=== PATIENT | male | born 1945 | race Caucasian/White ===

== ENCOUNTER 2017-08-12 20:21 | Observation (INO) | payer MEDICARE, OTHER ==
[2017-08-12] MEDS ORDERED: Famotidine 20 MG/2 ML SDV IVPUSH ONE (20:31)
[2017-08-12] MEDS ORDERED: Ticagrelor 90 MG Tab PO ONE (20:31)
[2017-08-12] MEDS ORDERED: Metoprolol Tartrate 5 MG/5 ML SDV IVPUSH ONE (20:31)
[2017-08-12] MEDS ORDERED: Aspirin 81 MG Tab.Chew CHEW ONE (20:31)
--- NOTE | 2017-08-12 20:31 | EDM.PDOC ---
ED HPI GENERAL MEDICAL PROBLEM - General Chief Complaint: Chest Pain Stated Complaint: chest pain Time Seen by Provider: 08/12/17 20:30 Source of Information: Reports: Patient, Family (), Old Records ([facility] chart/EMR) History Limitations: Reports: No Limitations - History of Present Illness INITIAL COMMENTS - FREE TEXT/NARRATIVE: The patient was brought to the emergency room via private automobile by his for evaluation of initial 8/10 sharp left-sided chest pain with some secondary dizziness and symptoms starting at about 19:45 hours while the patient was sitting down watching his grandson in gymnastics. He did take 2 sublingual nitroglycerin tablets with improvement of his chest pain to 2/10 at time of arrival. He has been compliant with his medications, including aspirin and Plavix today. The patient denies any chest pressure, heart flutter, orthostasis, orthopnea, diaphoresis, paresthesias, recent decreased exercise tolerance, or any other anginal-type symptoms. No recent history of abdominal pain, heartburn, nausea, diarrhea, melena, gross hematochezia, or any food intolerance, including fatty foods, etc. with normal bowel movement earlier today. He also denies any gross hematuria, colic, or other UTI symptoms. The patient also denies any recent fever, cough, wheezing, dyspnea, etc.. No history of recent headaches, visual changes, diplopia, change in mental status, or other change in neurological status. Onset: Today, Sudden Onset Date: 08/12/17 Onset Time: 19:45 Duration: Constant, Improving Location: Reports: Chest. Denies: Head, Face, Neck, Abdomen, Back, Pelvis, Upper Extremity, Left, Upper Extremity, Right, Lower Extremity, Left, Lower Extremity, Right, Generalized, Radiates to Quality: Reports: Same as Previous Episode, Sharp Severity: Moderate Improves with: Reports: Medication (As above) Worsens with: Reports: None Context: Reports: Other (As above) Associated Symptoms: Reports: Chest Pain. Denies: Confusion, Cough, Diaphoresis , Fever/Chills, Headaches, Loss of Appetite, Malaise, Nausea/Vomiting, Rash, Seizure, Shortness of Breath, Syncope, Weakness Treatments SAFETY PERSON: Reports: Nitroglycerin Left Middle Chest Pain Score (Numeric/FACES): 2 - Related Data Allergies Allergy/AdvReac Type Severity Reaction Status Date / Time oxycodone Allergy Hyperactivi Verified 08/12/17 20:29 ty Home Meds: Home Meds Hydrochlorothiazide 50 mg PO QAM 12/20/13 [History] Levothyroxine Sodium [Synthroid] 150 mcg PO QAM 12/20/13 [History] Multivitamin [Tab A Ariana] 1 tab PO QAM 12/20/13 [History] Simvastatin [Zocor] 80 mg PO BEDTIME 12/20/13 [History] Triamcinolone Acetonide [Triamcinolone Acetonide 0.1% Crm] 1 applic TOP BID PRN 12/20/13 [History] Acetaminophen [Tylenol] 650 mg PO Q4H PRN #0 tablet 06/19/15 [Rx] Aspirin [Halfprin] 81 mg PO BRK 06/19/15 [History] Clopidogrel [Plavix] 75 mg PO QAM 06/19/15 [History] Ranitidine HCl [Zantac] 150 mg PO DAILY 06/19/15 [History] Nitroglycerin [Nitrostat] 0.4 mg SL ASDIRECTED PRN 08/12/17 [History] Tiotropium [Spiriva] 18 mcg INH DAILY 08/12/17 [History] Past Medical History HEENT History: Reports: Cataract, Hard of Hearing, Impaired Vision, Other (See Below). Denies: Allergic Rhinitis, Glaucoma, Macular Degeneration, Retinal Detachment Other HEENT History: Previous nasal fracture requiring surgery as below. Patient wears reading glasses. Bilateral hearing aid therapy. Cardiovascular History: Reports: Arrhythmia, CAD, High Cholesterol, Hypertension , Stents, Other (See Below). Denies: Afib, Blood Clots/VTE/DVT, Cardiomyopathy , Heart Failure, Heart Murmur, SC, Pacemaker, PTCA, PVD, Syncope Other Cardiovascular History: Complete right bundle branch block. History of PTCA/stents including repeat procedures as below. Borderline cardiomegaly and left atrial enlargement by echocardiogram in 2016 as below. Dyslipidemia. Respiratory History: Reports: COPD, Other (See Below) Other Respiratory History: Benign pulmonary granulomas. COPD by chest x-ray with current inhaler therapy Gastrointestinal History: Reports: Bowel Obstruction, Chronic Constipation, Colon Polyp, Diverticulosis, Gastritis, GERD, Hepatitis, Hiatal Hernia, Irritable Bowel Syndrome, PUD, Other (See Below). Denies: Celiac Disease, Cholelithiasis, Chronic Diarrhea, Fecal Incontinence, Jaundice, Pancreatitis Other Gastrointestinal History: Ileus secondary to gastric outlet obstruction on 07/05/12. GERD with Avery's esophagitis. Hepatitis of unknown type at about age 12. Genitourinary History: Reports: BPH, Other (See Below). Denies: Acute Renal Failure, Chronic Renal Insuffiency, Renal Calculus, STD, Urinary Incontinence, UTI, Recurrent Other Genitourinary History: Benign left renal cysts by CT scan Musculoskeletal History: Reports: Amputation, Arthritis, Back Pain, Chronic, Fracture, Neck Pain, Chronic, Osteoarthritis, Other (See Below). Denies: Gout, RA, SLE Other Musculoskeletal History: Bilateral chronic feet pain with secondary disability. 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 Nasal fracture in 1967. Distal phalangeal fracture of digit #3 of the left hand in about 2001. 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 Neurological History: Reports: Concussion, Headaches, Chronic, Head Trauma, Neuropathy, Peripheral, Other (See Below). Denies: Cerebral Aneurysms, CVA, Migraines, MS, Parkinson's, Seizure, TIA Other Neuro History: Mild head concussion secondary to minor fall on the ice in about 2013 Psychiatric History: Reports: Anxiety, Depression. Denies: Abuse, Victim of, ADD, ADHD, Addiction, Psych Hospitalization(s), PTSD, Suicide Attempt, Suicidal Ideation Endocrine/Metabolic History: Reports: Hypothyroidism, Other (See Below). Denies : Diabetes, Type I, Diabetes, Type II, Diabetes Mellitus, Type 3c, IDDM Other Endocrine/Metabolic History: Agent Morris exposure in the Hematologic History: Reports: None. Denies: Anemia, Blood Transfusion(s), Iron Deficiency Immunologic History: Reports: None. Denies: AIDS, HIV, SLE Oncologic (Cancer) History: Reports: None. Denies: Basal Cell Carcinoma, Colon , Hodgkin's Lymphoma, Leukemia, Lymphoma, Malignant Melanoma, Non-Hodgkin's Lymphoma, Prostate, Squamous Cell Carcinoma Dermatologic History: Reports: Other (See Below). Denies: Eczema, Psoriasis Other Dermatologic History: atopic dermatitis over the left skull region - Infectious Disease History Infectious Disease History: Reports: Chicken Pox, Shingles (Right CVA region about 2005), Other (See Below). Denies: C-Difficile, Measles, Meningitis, Mononucleosis, MRSA, Mumps, Rheumatic Fever, Rubella, Scarlet Fever, VRE Other Infectious Disease History: Hepatitis of unknown type at about age 12. - Past Surgical History Head Surgeries/Procedures: Reports: None HEENT Surgical History: Reports: Adenoidectomy, Cataract Surgery, Naso-Sinus Surgery, Oral Surgery, Tonsillectomy, Other (See Below). Denies: Eye Surgery, Laser Surgery, LASIK, Myringotomy w Tube(s) Other HEENT Surgeries/Procedures: Left sided cataract surgery in about 2013 with right-sided cataract extraction in 2012. Nasal fracture repair in 1967. Complete upper teeth extraction with additional multiple teeth extractions. [place] teeth extraction 4 in 1959. Tonsillectomy and adenoidectomy in 1967 at time of nasal fracture repair as above. Cardiovascular Surgical History: Reports: Coronary Artery Stent, Percutaneous Transluminal Angioplasty, Other (See Below). Denies: Carotid Stents, Coronary Artery Bypass, Varicose, Vascular Surgery Other Cardiovascular Surgeries/Procedures: Initial metal stent placement of the proximal circumflex and distal right coronary artery in February 2015 with subsequent PTCA and drug-eluting stent placed for revascularization of previous stent site at the proximal circumflex coronary artery on 11/01/15 Respiratory Surgical History: Reports: None. Denies: Thoracentesis GI Surgical History: Reports: Colonoscopy, EGD, Hernia, Abdominal, Hernia, Inguinal, Polypectomy, Other (See Below). Denies: Appendectomy, Cholecystectomy Other GI Surgeries/Procedures: EGD with biopsies on 07/26/17. Last colonoscopy at the [facility] in May 2012 with excision of benign colonic polyp at that time. Previous EGDs on 02/14/15 and in May 2012 in the [place] in [place]. Umbilical hernia repair in about 2007. Left inguinal hernia repair 2 in his 40s and then decompression of the inguinal nerves and adhesion lysis of the left inguinal region in June 2012. Male Surgical History: Reports: Circumcision, TURP-Transurethral Resection of Prostate, Other (See Below). Denies: Vasectomy Other Male Surgeries/Procedures: Circumcision as an . TURP 2 in his early 60s Endocrine Surgical History: Reports: None. Denies: Thyroid Biopsy Neurological Surgical History: Reports: C-Spine, Sacral Spine, Spinal Fusion, Thoracic Spine, Other (See Below). Denies: Discectomy, Laminectomy, Lumbar Spine, Vertebroplasty Other Neurological Surgeries/Procedures: Spinal fusion of the cervical spine at about age 46 with subsequent spinal fusion of the upper thoracic region and his 50s?. Additional probable laminectomy and his sacral region in his late 50s. Musculoskeletal Surgical History: Reports: Carpal Tunnel, Other (See Below). Denies: Arthroscopic Procedure, Ganglion Cyst, Joint Replacement, Knee Replacement, ORIF, Shoulder Surgery Other Musculoskeletal Surgeries/Procedures:: Bilateral carpal tunnel release in the Oncologic Surgical History: Reports: None Dermatological Surgical History: Reports: None - Past Imaging History Past Imaging History: Reports: Angiography (Last heart catheterization on ), Cardiac Echo (02/11/16 with ejection fraction of 6065 percent and otherwise findings as above), CAT Scan (CT of the head on 04/09/14. CT of the abdomen and pelvis on 06/25/12.), Stress Testing (Low level cardiac stress test on 11/28/15 with previous positive Cardiolite stress test on 02/28/15 indicating inferolateral cardiac ischemia with ejection fraction of 76%. Low level cardiac stress test on 03/13/15.) Social & Family History - Family History HEENT: Reports: None Cardiac: Reports: Blood Clots/VTE/DVT, Heart Failure, Hypertension, Pacemaker, Other (See Below). Denies: Bypass, CAD, High Cholesterol, SC, Syncope Other Cardiac Family History: Father with history of recurrent DVTs and fatal CHF in his 80s. Hypertension in brother and father. Pacemaker in mother. Respiratory: Reports: None, Sleep Apnea, Other (See Below). Denies: Asthma, COPD, PE, Pneumothorax Other Respiratory Family Hisory: Sleep apnea in 2 brothers GI: Reports: Cholelithiasis, Other (See Below). Denies: Celiac Disease, Colon Polyps, GERD, GI bleed, Inflammatory Bowel Disease, Irritable Bowel Syndrome Other GI Family History: Mother with cholelithiasis : Reports: None. Denies: Renal Calculus, Renal Disease/Insufficiency OBGYN: Reports: None. Denies: Endometriosis, Recurrent Spontaneous Musculoskeletal: Reports: None. Denies: Gout, RA, SLE Neurological: Reports: Alzheimers Disease, CVA, Dementia, Migraines, TIA, Other (See Below). Denies: Cerebral Aneurysms, MS, Parkinson's, Seizure Other Neurological Family History: Mother with fatal organic brain syndrome at age 78. Brother with organic brain syndrome at age 77 with possible alcoholic encephalopathy. Mother with history of TIAs recurrent nature. Father with recurrent CVAs initially in his 60s. Sister with migraine headaches Psychiatric: Reports: Anxiety, Depression, Other (See Below). Denies: Abuse, Victim of, ADD, ADHD, Psych Hospitalization(s), PTSD, Suicide Attempt Other Psychiatric Family History: Anxiety depression disorder in 6 brothers and 2 sisters with all having alcohol abuse Endocrine/Metabolic: Reports: Diabetes, type II, Other (See Below). Denies: Diabetes, Type I, Diabetes Mellitus, Type 3c, Hypothyroidism, IDDM Other Endocrine/Metabolic Family History: Diabetes mellitus in paternal grandfather Hematologic: Reports: None. Denies: Anemia, SLE, Transfusion Reaction Immunologic: Reports: None. Denies: AIDS, HIV, SLE Dermatologic: Reports: None. Denies: Eczema, Psoriasis Oncologic: Reports: Liver, Prostate, Other (See Below). Denies: Colon, Hodgkin' s Lymphoma, Leukemia, Lymphoma, Non-Hodgkin's Lymphoma, Skin Other Oncologic Family History: Sister with fatal unknown type of cancer in her 50s; brother with fatal throat cancer in his 70s with history of alcohol abuse; sister with unknown type of fatal cancer at age 75. Another brother with fatal liver cancer likely secondary to alcohol abuse in his 70s. Brother with prostate cancer in his late 70s. - Tobacco Use Smoking Status *Q: Former Smoker Tobacco Use Within Last Twelve Months: No Years of Tobacco use: 52 Packs/Tins Daily: 4 Used Tobacco, but Quit: Yes Month/Year Tobacco Last Used: 2004 Smoking Cessation Information Provided To Patient: No Second Hand Smoke Exposure: No Second Hand Smoke Education Provided: No - Caffeine Use Caffeine Use: Reports: Coffee (6 cups of coffee per day), Soda (Occasional), Tea (Occasional 2 times per month). Denies: Energy Drinks - Alcohol Use Alcohol Use History: Yes Days Per Week of Alcohol Use: 2 (No previous DWIs, problems with alcohol abuse, etc.) Number of Drinks Per Day: 2 (Usually beer) Total Drinks Per Week: 4 Alcohol Use in Last Twelve Months: Yes Alcohol Use Frequency: Socially - Recreational Drug Use Recreational Drug Use: No Drug Use in Last 12 Months: No Recreational Drug Type: Denies: Amphetamines (Speed), Cocaine, Heroin, Inhalants (Glues, Solvents, Aerosols), LSD (Acid), Marijuana/Hashish, Methamphetamine, Morphine, Oxycodone Recreational Drug Last Use: 5 cups of coffee per day, occasional soda - Living Situation & Occupation Living situation: Reports: (1965, 3 children), with Family () Occupation: Disabled (Disability at age 56 through the [facility] secondary to his chronic bilateral feet pain with patient previously working at [employer] in [employer]) ED ROS GENERAL - Review of Systems Review Of Systems: ROS reveals no pertinent complaints other than HPI. ED EXAM, GENERAL - Physical Exam Exam: See Below Exam Limited By: No Limitations General Appearance: Alert, WD/WN, No Apparent Distress Eye Exam: Bilateral Eye: EOMI, Normal Inspection (No nystagmus), PERRL Ears: Normal External Exam, Hearing Grossly Normal (Mild to moderate bilateral presbycusis with bilateral hearing aid therapy) Nose: Normal Inspection, Normal Mucosa, No Blood Throat/Mouth: Normal Lips, Normal Gums, Normal Oropharynx, Normal Voice, No Airway Compromise. No: Normal Teeth (Complete upper dentures), Dysphagia, Perioral Cyanosis Head: Atraumatic, Normocephalic. No: Facial Swelling, Facial Tenderness, Sinus Tenderness Neck: Supple, Non-Tender, Full Range of Motion, Carotid Bruit (Mild bilateral carotid bruits). No: Lymphadenopathy (L), Lymphadenopathy (R), Thyromegaly Respiratory/Chest: No Respiratory Distress, Normal Breath Sounds, No Accessory Muscle Use, Chest Non-Tender, Rales (Mild bilateral basilar rales). No: Rhonchi , Wheezing, Pleural Rub, Retractions Cardiovascular: Normal Peripheral Pulses, Regular Rate, Rhythm, No Edema, No Gallop, No JVD, No Murmur, No Rub. No: Gallop/S3, Gallop/S4, Friction Rub Peripheral Pulses: 2+: Radial (L), Radial (R), Dorsalis Pedis (L), Dorsalis Pedis (R) GI/Abdominal: Normal Bowel Sounds, Soft, Non-Tender, No Organomegaly, No Distention, No Abnormal Bruit, No Mass, Pelvis Stable, Other (Obese). No: Guarding (Male) Exam: Deferred Rectal (Males) Exam: Deferred Back Exam: Normal Inspection, Full Range of Motion. No: CVA Tenderness (L), CVA Tenderness (R), Muscle Spasm Extremities: Normal Range of Motion, Non-Tender, No Pedal Edema, Normal Capillary Refill, Other (Status post amputation of digit #3 of the left foot). No: Gomez's Sign Neurological: Alert, Oriented, CN II-XII Intact, Normal Cognition, Normal Gait, Normal Reflexes (Negative Babinski's), No Motor/Sensory Deficits Psychiatric: Normal Affect, Normal Mood Skin Exam: Warm, Dry, Intact, Normal Color, No Rash. No: Diaphoretic, Lymphangitis, Tattoo(s), Wound/Incision Lymphatic: No Adenopathy EKG INTERPRETATION EKG Date: 08/12/17 Time: 20:39 Rhythm: NSR Rate (Beats/Min): 74 [place]: Normal (Neutral cardiac axis) P-Wave: Enlarged (Moderate diffuse biphasic P waves) QRS: RBBB (QRS interval of 0.13 seconds representing a complete right bundle branch block with T-wave inversions in leads V1 and V3 with new T-wave inversion in lead V3 since low level cardiac stress test on 11/28/15) ST-T: Other (As above) QT: Normal FL/PQ Interval: 0.17 seconds Comparison: Change From Previous EKG (As above) EKG Interpretation Comments: 1. Mild anterior wall cardiac ischemia 2. Complete right bundle branch block 3. Left atrial enlargement Course - Vital Signs Last Recorded V/S: Last Vital Signs Temp 36.6 C 08/12/17 20:25 Pulse 73 08/12/17 21:13 Resp 19 08/12/17 21:13 BP 120/79 08/12/17 21:13 Pulse Ox 98 08/12/17 21:13 Vital Signs - 24 hr 08/12/17 08/12/17 08/12/17 20:25 20:35 20:46 Temperature [ 36.6 C Oral] Pulse, 74 Peripheral Pulse, 76 75 Peripheral [ Brachial] Respiratory 19 17 Rate Blood Pressure 130/74 Blood Pressure 146/73 H 130/74 [Upper Arm] O2 Sat by Pulse 96 97 Oximetry 08/12/17 08/12/17 08/12/17 20:50 21:13 21:36 Temperature [ Oral] Pulse, Peripheral Pulse, 73 73 73 Peripheral [ Brachial] Respiratory 19 19 19 Rate Blood Pressure Blood Pressure 134/76 120/79 149/93 H [Upper Arm] O2 Sat by Pulse 97 98 99 Oximetry - Orders/Labs/Meds Orders: Active Orders 24 hr Category Date Time Status Cardiac Monitoring [RC] . DIRECTED Care 08/12/17 20:31 Active EKG Documentation Completion [RC] ASDIRECTED Care 08/12/17 20:31 Active Oxygen Therapy, ED [RC] CONTINUOUS Care 08/12/17 20:31 Active Peripheral IV Care [RC] . DIRECTED Care 08/12/17 20:31 Active Pulse Oximetry [RC] CONTINUOUS Care 08/12/17 20:31 Active Up With Assistance [RC] PFP Care 08/12/17 20:31 Active Vital Signs [RC] PFP Care 08/12/17 20:31 Active Nothing per Oral Now Diet [DIET] Diet 08/12/17 Breakfast Active Chest 1V Frontal [CR] Stat Exams 08/12/17 20:31 Taken Sodium Chloride 0.9% [Saline Flush] Med 08/12/17 20:31 Active 10 ml FLUSH ASDIRECTED PRN Obtain Past Medical Record [OM.PC] Urgent Oth 08/12/17 20:31 Active Peripheral IV Insertion Adult [OM.PC] Stat Oth 08/12/17 20:31 Ordered Resuscitation Status Stat Resus Stat 08/12/17 20:31 Ordered Medication Orders Sodium Chloride (Saline Flush) 10 ml FLUSH ASDIRECTED PRN PRN Reason: Keep Vein Open Last Admin: 08/12/17 20:53 Dose: 10 ml Labs: Laboratory Tests 08/12/17 08/12/17 08/12/17 Range/Units 20:40 20:40 20:40 WBC 8.1 (4.0-10.2) K/uL RBC 4.73 (4.33-5.41) M/uL Hgb 14.6 (13.1-16.8) g/dL Hct 42.5 (39.0-49.0) % MCV 89.9 (84.0-98.0) fL MCH 30.9 (28.2-33.3) pg MCHC 34.4 (31.7-36.0) g/dL RDW 13.3 (11.2-14.1) % Plt Count 230 (150-350) K/uL Neut % (Auto) 64.0 (45.0-80.0) % Lymph % (Auto) 23.7 (10.0-50.0) % Cloud % (Auto) 7.7 (2.0-14.0) % Eos % (Auto) 4.0 (0.0-5.0) % Baso % (Auto) 0.6 (0.0-2.0) % Neut # (Auto) 5.18 (1.40-7.00) K/uL Lymph # (Auto) 1.92 (0.50-3.50) K/uL Cloud # (Auto) 0.62 (0.00-1.00) K/uL Eos # (Auto) 0.32 (0.00-0.50) K/uL Baso # (Auto) 0.05 (0.00-0.20) K/uL PT 10.5 (9.8-11.7) SEC INR 1.0 APTT 26.0 (22.1-29.8) SEC D-Dimer, Quantitative 205 (0-400) ng/mL Sodium (136-145) mmol/L Potassium (3.5-5.1) mmol/L Chloride (98-107) mmol/L Carbon Dioxide (21.0-32.0) mmol/L BUN (7-18) mg/dL Creatinine (0.51-1.17) mg/dL Est Cr Clr Drug Dosing mL/min Estimated GFR (MDRD) mL/min Glucose (74-106) mg/dL Lactic Acid (0.4-2.0) mmol/L Uric Acid (2.6-7.2) mg/dL Calcium (8.5-10.1) mg/dL Magnesium (1.8-2.4) mg/dL Total Bilirubin (0.2-1.0) mg/dL AST (15-37) U/L ALT (12-78) U/L Alkaline Phosphatase (46-116) IU/L Creatine Kinase (26-308) U/L Creatine Kinase Index (0.0-2.5) % CK-MB (CK-2) (0.00-3.60) ng/mL Troponin I (0.000-0.056) ng/mL NT-Pro-B Natriuret Pep (0-125) pg/mL Total Protein (6.4-8.2) g/dL Albumin (3.4-5.0) g/dL TSH, Ultra Sensitive (0.358-3.740) mIU/mL 08/12/17 08/12/17 Range/Units 20:40 20:40 WBC (4.0-10.2) K/uL RBC (4.33-5.41) M/uL Hgb (13.1-16.8) g/dL Hct (39.0-49.0) % MCV (84.0-98.0) fL MCH (28.2-33.3) pg MCHC (31.7-36.0) g/dL RDW (11.2-14.1) % Plt Count (150-350) K/uL Neut % (Auto) (45.0-80.0) % Lymph % (Auto) (10.0-50.0) % Cloud % (Auto) (2.0-14.0) % Eos % (Auto) (0.0-5.0) % Baso % (Auto) (0.0-2.0) % Neut # (Auto) (1.40-7.00) K/uL Lymph # (Auto) (0.50-3.50) K/uL Cloud # (Auto) (0.00-1.00) K/uL Eos # (Auto) (0.00-0.50) K/uL Baso # (Auto) (0.00-0.20) K/uL PT (9.8-11.7) SEC INR APTT (22.1-29.8) SEC D-Dimer, Quantitative (0-400) ng/mL Sodium 140 (136-145) mmol/L Potassium 4.1 (3.5-5.1) mmol/L Chloride 103 (98-107) mmol/L Carbon Dioxide 29.0 (21.0-32.0) mmol/L BUN 17 (7-18) mg/dL Creatinine 1.03 (0.51-1.17) mg/dL Est Cr Clr Drug Dosing 59.36 mL/min Estimated GFR (MDRD) > 60 mL/min Glucose 121 H (74-106) mg/dL Lactic Acid 0.9 (0.4-2.0) mmol/L Uric Acid 6.1 (2.6-7.2) mg/dL Calcium 9.3 (8.5-10.1) mg/dL Magnesium 2.1 (1.8-2.4) mg/dL Total Bilirubin 0.5 (0.2-1.0) mg/dL AST 24 (15-37) U/L ALT 30 (12-78) U/L Alkaline Phosphatase 128 H (46-116) IU/L Creatine Kinase 96 (26-308) U/L Creatine Kinase Index 1.6 (0.0-2.5) % CK-MB (CK-2) 1.50 (0.00-3.60) ng/mL Troponin I 0.000 (0.000-0.056) ng/mL NT-Pro-B Natriuret Pep 102 (0-125) pg/mL Total Protein 7.9 (6.4-8.2) g/dL Albumin 3.9 (3.4-5.0) g/dL TSH, Ultra Sensitive 5.733 H (0.358-3.740) mIU/mL Meds: Medications Generic Name Dose Route Start Last Admin Trade Name Freq PRN Reason Stop Dose Admin Sodium Chloride 10 ml 08/12/17 20:31 08/12/17 20:53 Saline Flush FLUSH 10 ml ASDIRECTED PRN Administration Keep Vein Open Discontinued Medications Generic Name Dose Route Start Last Admin Trade Name Freq PRN Reason Stop Dose Admin Aspirin 324 mg 08/12/17 20:31 08/12/17 20:46 Aspirin CHEW 08/12/17 20:32 324 mg ONETIME ONE Administration Famotidine 40 mg 08/12/17 20:31 08/12/17 20:53 Pepcid IVPUSH 08/12/17 20:32 40 mg ONETIME ONE Administration Metoprolol Tartrate 2.5 mg 08/12/17 20:31 08/12/17 20:46 Lopressor IVPUSH 08/12/17 20:32 2.5 mg ONETIME ONE Administration Ticagrelor 180 mg 08/12/17 20:31 08/12/17 20:46 Brilinta PO 08/12/17 20:32 180 mg ONETIME ONE Administration - Radiology Interpretation Free Text/Narrative:: deck scaler shows normal sinus rhythm with heart rate in the 70s to 80s with no ectopy or arrhythmia Chest x-ray, portable, shows evidence of moderate to severe COPD changes with probable pulmonary hypertension and/or borderline centralized CHF. Note borderline cardiomegaly and mild prominence of the proximal aortic arch with no pulmonary infiltrates, pneumothorax, etc. Departure - Departure Time of Disposition: 21:55 Disposition: Refer to Observation Condition: Good Clinical Impression: COPD, Mild chronic obstructive pulmonary disease, HTN, Benign hypertension, Complete right bundle branch block, Dyslipidemia, Peptic reflux disease, Hyperglycemia Coronary artery disease Qualifiers: Coronary Disease-Associated Artery/Lesion type: [place] artery [place] vs. transplanted heart: [place] heart Associated angina: with stable angina Qualified Code(s): I25.119 - Atherosclerotic heart disease of [place] coronary artery with unspecified angina pectoris Hypothyroidism Qualifiers: Hypothyroidism type: acquired Qualified Code(s): E03.9 - Hypothyroidism, unspecified Osteoarthritis Qualifiers: Osteoarthritis location: multiple joints Osteoarthritis type: primary Qualified Code(s): M15.0 - Primary generalized (osteo)arthritis Referrals: PCP,Unknown [Primary Care Provider] - Forms: ED Department Discharge Care Plan Goals: See plan - Problem List & Annotations (1) Chest pain SNOMED Code(s): 62523644 Code(s): R07.9 - CHEST PAIN, UNSPECIFIED Status: Acute Priority: High Current Visit: Yes Onset Date: 08/12/17 Annotation/Comment:: Chest pain protocol initiated immediately upon arrival of the patient to the emergency room. Note complete resolution of symptoms at time of admission. Patient does have a significant heart history, including restenosis of previous stent as above. Low threshold for cardiology consultation. Initiate standard rule out SC orders. Recommend repeat Cardiolite stress test shortly after hospital discharge. Low dose Lovenox subcutaneous therapy as DVT prophylaxis. Note some possible anterior wall cardiac ischemia by today's EKG, however difficult to assess secondary to his complete right bundle branch block (2) Coronary artery disease SNOMED Code(s): 75028005 Code(s): I25.10 - ATHSCL HEART DISEASE OF [place] CORONARY ARTERY W/O ANG PCTRS Status: Chronic Priority: Medium Current Visit: Yes Annotation/ Comment:: As above. Qualifiers: Coronary Disease-Associated Artery/Lesion type: [place] artery [place] vs. transplanted heart: [place] heart Associated angina: with stable angina Qualified Code(s): I25.119 - Atherosclerotic heart disease of [place] coronary artery with unspecified angina pectoris (3) COPD (chronic obstructive pulmonary disease) SNOMED Code(s): 13397725 Code(s): J44.9 - CHRONIC OBSTRUCTIVE PULMONARY DISEASE, UNSPECIFIED Status : Chronic Priority: Medium Current Visit: Yes Annotation/Comment:: No recent fever or bronchitic type symptoms. Qualifiers: COPD type: emphysema (4) HTN, Benign hypertension SNOMED Code(s): 66825205 Code(s): I10 - ESSENTIAL (PRIMARY) HYPERTENSION Status: Chronic Priority : Medium Current Visit: Yes Annotation/Comment:: His blood pressures were under good control in the emergency room. (5) Peptic reflux disease SNOMED Code(s): 871501786 Code(s): K21.9 - GASTRO-ESOPHAGEAL REFLUX DISEASE WITHOUT ESOPHAGITIS Status: Chronic Priority: Medium Current Visit: Yes Annotation/Comment:: Note history of Avery's esophagitis with recent EGD as above. No current abdominal pain or evidence of recent GI bleed, etc. Symptoms under relatively good control with current medications by his history. High-dose IV Pepcid was given as GI prophylaxis in the emergency room (6) Hypothyroidism SNOMED Code(s): 38510212 Code(s): E03.9 - HYPOTHYROIDISM, UNSPECIFIED Status: Chronic Priority: Medium Current Visit: Yes Annotation/Comment:: TSH somewhat elevated today. Increase his Synthroid supplementation. Recommend repeat TSH in 4 weeks. Qualifiers: Hypothyroidism type: acquired Qualified Code(s): E03.9 - Hypothyroidism, unspecified (7) Complete right bundle branch block SNOMED Code(s): 660419648 Code(s): I45.10 - UNSPECIFIED RIGHT BUNDLE-BRANCH BLOCK Status: Chronic Priority: Medium Current Visit: Yes Annotation/Comment:: Stable (8) Dyslipidemia SNOMED Code(s): 834645266 Code(s): E78.5 - HYPERLIPIDEMIA, UNSPECIFIED Status: Chronic Priority: Medium Current Visit: Yes Annotation/Comment:: Currently under therapy. Lipid panel in the a.m. (9) Hyperglycemia SNOMED Code(s): 63828381 Code(s): R73.9 - HYPERGLYCEMIA, UNSPECIFIED Status: Acute Priority: Medium Current Visit: Yes Onset Date: 08/12/17 Annotation/Comment:: Glycosylated hemoglobin in the a.m. with no previous history of diabetes. Glucose today is nonfasting (10) Osteoarthritis SNOMED Code(s): 413903911 Code(s): M19.90 - UNSPECIFIED OSTEOARTHRITIS, UNSPECIFIED SITE Status: Chronic Priority: Medium Current Visit: Yes Annotation/Comment:: Stable by patient history Qualifiers: Osteoarthritis location: multiple joints Osteoarthritis type: primary Qualified Code(s): M15.0 - Primary generalized (osteo)arthritis - Problem List Review Problem List Initiated/Reviewed/Updated: Yes - My Orders Last 24 Hours: My Active Orders 08/12/17 20:31 Cardiac Monitoring [RC] . DIRECTED EKG Documentation Completion [RC] ASDIRECTED Oxygen Therapy, ED [RC] CONTINUOUS Peripheral IV Care [RC] . DIRECTED Pulse Oximetry [RC] CONTINUOUS Up With Assistance [RC] PFP Vital Signs [RC] PFP Chest 1V Frontal [CR] Stat Sodium Chloride 0.9% [Saline Flush] 10 ml FLUSH ASDIRECTED PRN Obtain Past Medical Record [OM.PC] Urgent Peripheral IV Insertion Adult [OM.PC] Stat Resuscitation Status Stat 08/12/17 Breakfast Nothing per Oral Now Diet [DIET] - Assessment/Plan Admission H&P: Please use this note as an admission H&P Last 24 Hours: My Active Orders 08/12/17 20:31 Cardiac Monitoring [RC] . DIRECTED EKG Documentation Completion [RC] ASDIRECTED Oxygen Therapy, ED [RC] CONTINUOUS Peripheral IV Care [RC] . DIRECTED Pulse Oximetry [RC] CONTINUOUS Up With Assistance [RC] PFP Vital Signs [RC] PFP Chest 1V Frontal [CR] Stat Sodium Chloride 0.9% [Saline Flush] 10 ml FLUSH ASDIRECTED PRN Obtain Past Medical Record [OM.PC] Urgent Peripheral IV Insertion Adult [OM.PC] Stat Resuscitation Status Stat 08/12/17 Breakfast Nothing per Oral Now Diet [DIET] Assessment:: As above. Plan: As above. Extensive precautions were given to the patient and his , who are in agreement with the treatment plan. The patient's condition is stable enough for observation status and general supervision. Karel King M.D., at the [facility] assumes care in the a.m.
[2017-08-12] MEDS: Sodium Chloride 0.9% 10 ML Syringe FLUSH PRN (20:53)
[2017-08-12 21:27] LABS: CHLORIDE,CL 103 mmol/L (98-107); SODIUM,NA 140 mmol/L (136-145)
[2017-08-12] MEDS ORDERED: Simvastatin 20 MG Tab PO SCH (22:07)
[2017-08-12] MEDS ORDERED: Acetaminophen 325 MG Tab PO PRN ×2 (22:07→22:09)
[2017-08-12] MEDS ORDERED: Triamcinolone Acetonide 0.1% Crm 15 GM Tube TOP PRN (22:07)
[2017-08-12] MEDS ORDERED: Nitroglycerin 0.4 MG Tab.SL SL PRN (22:07)
[2017-08-12] MEDS ORDERED: Sodium Chloride 0.9% 10 ML Syringe FLUSH PRN (22:09)
[2017-08-12] MEDS ORDERED: Temazepam 15 MG Cap PO PRN (22:09)
[2017-08-12] MEDS ORDERED: Albuterol/Ipratropium 3.0-0.5 MG/3 ML Neb Soln NEB PRN (22:13)
[2017-08-12] MEDS ORDERED: Albuterol 0.083% 2.5 MG/3 ML Neb Soln INH PRN (22:13)
[2017-08-12] MEDS ORDERED: Enoxaparin 40 MG/0.4 ML Syringe SUBCUT SCH (22:30)
[2017-08-13 07:04] LABS: CHLORIDE,CL 105 mmol/L (98-107); SODIUM,NA 140 mmol/L (136-145)
[2017-08-13] MEDS: Sodium Chloride 0.9% 10 ML Syringe FLUSH PRN (07:17)
[2017-08-13] MEDS ORDERED: Tiotropium Inhaler 18 MCG Inhalation Powder Cap Kit of 5 INH SCH (08:00)
[2017-08-13] MEDS ORDERED: Hydrochlorothiazide 25 MG Tab PO SCH (08:00)
[2017-08-13 12:19] VITALS: BP 148/96
--- NOTE | 2017-08-13 12:51 | PCM.DCSUM1 ---
Discharge Summary - Discharge Data Discharge Date: 08/13/17 Discharge Disposition: Home, Self-Care 01 Condition: Stable - Discharge Diagnosis/Problem(s) (1) Chest pain SNOMED Code(s): 01484254 ICD Code: R07.9 - CHEST PAIN, UNSPECIFIED Status: Acute Priority: High Current Visit: Yes Onset Date: 08/12/17 Problem Details: Patient will be discharged home continue his medications schedule for Cardiolite stress test as soon as possible - Patient Instructions Diet: Heart Healthy Diet Activity: Rest and Relax Today Driving: May Drive Today Showering/Bathing: May Shower - Discharge Plan Home Medications: Home Meds Hydrochlorothiazide 50 mg PO QAM 12/20/13 [History] Levothyroxine Sodium [Synthroid] 150 mcg PO QAM 12/20/13 [History] Multivitamin [Tab A Ariana] 1 tab PO QAM 12/20/13 [History] Simvastatin [Zocor] 80 mg PO BEDTIME 12/20/13 [History] Triamcinolone Acetonide [Triamcinolone Acetonide 0.1% Crm] 1 applic TOP BID PRN 12/20/13 [History] Acetaminophen [Tylenol] 650 mg PO Q4H PRN #0 tablet 06/19/15 [Rx] Aspirin [Halfprin] 81 mg PO BRK 06/19/15 [History] Clopidogrel [Plavix] 75 mg PO QAM 06/19/15 [History] Ranitidine HCl [Zantac] 150 mg PO DAILY 06/19/15 [History] Nitroglycerin [Nitrostat] 0.4 mg SL ASDIRECTED PRN 08/12/17 [History] Tiotropium [Spiriva] 18 mcg INH DAILY 08/12/17 [History] Patient Handouts: Enoxaparin injection, Nonspecific Chest Pain, [id number], Venous Thromboembolism Prevention Forms: ED Department Discharge Referrals: PCP,Unknown [Primary Care Provider] - - Discharge Summary/Plan Comment DC Time >30 min.: No Discharge Summary/Plan Comment: Patient is a 72-year-old who is well-known to me admitted with chest pain patient has not had a episode of chest pain while in the hospital will discharge home on current medications plus scheduled for cardiac stress test as soon as possible - General Info Date of Service: 08/13/17 Functional Status: Reports: Tolerating Diet - Review of Systems General: Reports: No Symptoms HEENT: Reports: No Symptoms Pulmonary: Reports: No Symptoms Cardiovascular: Reports: No Symptoms Gastrointestinal: Reports: No Symptoms Genitourinary: Reports: No Symptoms Musculoskeletal: Reports: No Symptoms Skin: Reports: No Symptoms Neurological: Reports: No Symptoms Psychiatric: Reports: No Symptoms - Patient Data Vitals - Most Recent: Last Vital Signs Temp 98.6 F 08/13/17 10:00 Pulse 73 08/13/17 10:00 Resp 20 08/13/17 12:00 BP 148/96 H 08/13/17 12:00 Pulse Ox 98 08/13/17 12:00 Weight - Most Recent: 191 lb 9.6 oz I&O - Last 24 hours: Intake & Output 08/12/17 08/13/17 08/13/17 22:59 06:59 14:59 Intake Total 50 Output Total 200 Balance -150 Lab Results - Last 24 hrs: Laboratory Results - last 24 hr 08/12/17 08/12/17 08/12/17 Range/Units 20:40 20:40 20:40 WBC 8.1 (4.0-10.2) K/uL RBC 4.73 (4.33-5.41) M/uL Hgb 14.6 (13.1-16.8) g/dL Hct 42.5 (39.0-49.0) % MCV 89.9 (84.0-98.0) fL MCH 30.9 (28.2-33.3) pg MCHC 34.4 (31.7-36.0) g/dL RDW 13.3 (11.2-14.1) % Plt Count 230 (150-350) K/uL Neut % (Auto) 64.0 (45.0-80.0) % Lymph % (Auto) 23.7 (10.0-50.0) % Barber % (Auto) 7.7 (2.0-14.0) % Eos % (Auto) 4.0 (0.0-5.0) % Baso % (Auto) 0.6 (0.0-2.0) % Neut # (Auto) 5.18 (1.40-7.00) K/uL Lymph # (Auto) 1.92 (0.50-3.50) K/uL [place] # (Auto) 0.62 (0.00-1.00) K/uL Eos # (Auto) 0.32 (0.00-0.50) K/uL Baso # (Auto) 0.05 (0.00-0.20) K/uL PT 10.5 (9.8-11.7) SEC INR 1.0 APTT 26.0 (22.1-29.8) SEC D-Dimer, Quantitative 205 (0-400) ng/mL Sodium (136-145) mmol/L Potassium (3.5-5.1) mmol/L Chloride (98-107) mmol/L Carbon Dioxide (21.0-32.0) mmol/L BUN (7-18) mg/dL Creatinine (0.51-1.17) mg/dL Est Cr Clr Drug Dosing mL/min Estimated GFR (MDRD) mL/min Glucose (74-106) mg/dL Hemoglobin A1c (4.3-5.7) % Lactic Acid (0.4-2.0) mmol/L Uric Acid (2.6-7.2) mg/dL Calcium (8.5-10.1) mg/dL Magnesium (1.8-2.4) mg/dL Total Bilirubin (0.2-1.0) mg/dL AST (15-37) U/L ALT (12-78) U/L Alkaline Phosphatase (46-116) IU/L Creatine Kinase (26-308) U/L Creatine Kinase Index (0.0-2.5) % CK-MB (CK-2) (0.00-3.60) ng/mL Troponin I (0.000-0.056) ng/mL NT-Pro-B Natriuret Pep (0-125) pg/mL Total Protein (6.4-8.2) g/dL Albumin (3.4-5.0) g/dL Triglycerides (30-150) mg/dL Cholesterol (100-200) mg/dL LDL Cholesterol, Calc (0-100) mg/dL HDL Cholesterol (40-60) mg/dL TSH, Ultra Sensitive (0.358-3.740) mIU/mL 08/12/17 08/12/17 08/13/17 Range/Units 20:40 20:40 06:10 WBC 6.2 (4.0-10.2) K/uL RBC 4.55 (4.33-5.41) M/uL Hgb 14.0 (13.1-16.8) g/dL Hct 41.3 (39.0-49.0) % MCV 90.8 (84.0-98.0) fL MCH 30.8 (28.2-33.3) pg MCHC 33.9 (31.7-36.0) g/dL RDW 13.3 (11.2-14.1) % Plt Count 207 (150-350) K/uL Neut % (Auto) 61.2 (45.0-80.0) % Lymph % (Auto) 23.4 (10.0-50.0) % [place] % (Auto) 9.5 (2.0-14.0) % Eos % (Auto) 5.3 H (0.0-5.0) % Baso % (Auto) 0.6 (0.0-2.0) % Neut # (Auto) 3.82 (1.40-7.00) K/uL Lymph # (Auto) 1.46 (0.50-3.50) K/uL [place] # (Auto) 0.59 (0.00-1.00) K/uL Eos # (Auto) 0.33 (0.00-0.50) K/uL Baso # (Auto) 0.04 (0.00-0.20) K/uL PT (9.8-11.7) SEC INR APTT (22.1-29.8) SEC D-Dimer, Quantitative (0-400) ng/mL Sodium 140 (136-145) mmol/L Potassium 4.1 (3.5-5.1) mmol/L Chloride 103 (98-107) mmol/L Carbon Dioxide 29.0 (21.0-32.0) mmol/L BUN 17 (7-18) mg/dL Creatinine 1.03 (0.51-1.17) mg/dL Est Cr Clr Drug Dosing 59.36 mL/min Estimated GFR (MDRD) > 60 mL/min Glucose 121 H (74-106) mg/dL Hemoglobin A1c (4.3-5.7) % Lactic Acid 0.9 (0.4-2.0) mmol/L Uric Acid 6.1 (2.6-7.2) mg/dL Calcium 9.3 (8.5-10.1) mg/dL Magnesium 2.1 (1.8-2.4) mg/dL Total Bilirubin 0.5 (0.2-1.0) mg/dL AST 24 (15-37) U/L ALT 30 (12-78) U/L Alkaline Phosphatase 128 H (46-116) IU/L Creatine Kinase 96 (26-308) U/L Creatine Kinase Index 1.6 (0.0-2.5) % CK-MB (CK-2) 1.50 (0.00-3.60) ng/mL Troponin I 0.000 (0.000-0.056) ng/mL NT-Pro-B Natriuret Pep 102 (0-125) pg/mL Total Protein 7.9 (6.4-8.2) g/dL Albumin 3.9 (3.4-5.0) g/dL Triglycerides (30-150) mg/dL Cholesterol (100-200) mg/dL LDL Cholesterol, Calc (0-100) mg/dL HDL Cholesterol (40-60) mg/dL TSH, Ultra Sensitive 5.733 H (0.358-3.740) mIU/mL 08/13/17 08/13/17 08/13/17 Range/Units 06:10 06:10 11:30 WBC (4.0-10.2) K/uL RBC (4.33-5.41) M/uL Hgb (13.1-16.8) g/dL Hct (39.0-49.0) % MCV (84.0-98.0) fL MCH (28.2-33.3) pg MCHC (31.7-36.0) g/dL RDW (11.2-14.1) % Plt Count (150-350) K/uL Neut % (Auto) (45.0-80.0) % Lymph % (Auto) (10.0-50.0) % [place] % (Auto) (2.0-14.0) % Eos % (Auto) (0.0-5.0) % Baso % (Auto) (0.0-2.0) % Neut # (Auto) (1.40-7.00) K/uL Lymph # (Auto) (0.50-3.50) K/uL [place] # (Auto) (0.00-1.00) K/uL Eos # (Auto) (0.00-0.50) K/uL Baso # (Auto) (0.00-0.20) K/uL PT (9.8-11.7) SEC INR APTT (22.1-29.8) SEC D-Dimer, Quantitative (0-400) ng/mL Sodium 140 (136-145) mmol/L Potassium 4.0 (3.5-5.1) mmol/L Chloride 105 (98-107) mmol/L Carbon Dioxide 28.8 (21.0-32.0) mmol/L BUN 19 H (7-18) mg/dL Creatinine 0.97 (0.51-1.17) mg/dL Est Cr Clr Drug Dosing 63.03 mL/min Estimated GFR (MDRD) > 60 mL/min Glucose 113 H (74-106) mg/dL Hemoglobin A1c 6.3 H (4.3-5.7) % Lactic Acid (0.4-2.0) mmol/L Uric Acid (2.6-7.2) mg/dL Calcium 8.6 (8.5-10.1) mg/dL Magnesium (1.8-2.4) mg/dL Total Bilirubin 0.4 (0.2-1.0) mg/dL AST 27 (15-37) U/L ALT 25 (12-78) U/L Alkaline Phosphatase 113 (46-116) IU/L Creatine Kinase 72 73 (26-308) U/L Creatine Kinase Index 1.7 1.6 (0.0-2.5) % CK-MB (CK-2) 1.20 1.20 (0.00-3.60) ng/mL Troponin I 0.003 0.003 (0.000-0.056) ng/mL NT-Pro-B Natriuret Pep (0-125) pg/mL Total Protein 6.9 (6.4-8.2) g/dL Albumin 3.4 (3.4-5.0) g/dL Triglycerides 201 H (30-150) mg/dL Cholesterol 109 (100-200) mg/dL LDL Cholesterol, Calc 39 (0-100) mg/dL HDL Cholesterol 30 L (40-60) mg/dL TSH, Ultra Sensitive (0.358-3.740) mIU/mL Med Orders - Current: Current Medications Acetaminophen (Tylenol) 650 mg PO Q4H PRN PRN Reason: Pain Albuterol (Proventil Neb Soln) 2.5 mg INH Q2H PRN PRN Reason: SHORTNESS OF BREATH Albuterol/Ipratropium (Duoneb 3.0-0.5 Mg/3 Ml) 3 ml NEB Q4HRRT PRN PRN Reason: Dyspnea Enoxaparin Sodium (Lovenox) 40 mg SUBCUT Q24H [facility] Last Admin: 08/12/17 22:59 Dose: 40 mg Hydrochlorothiazide (Hydrochlorothiazide) 50 mg PO QAM [facility] Last Admin: 08/13/17 07:16 Dose: 50 mg Levothyroxine Sodium (Levothyroxine) 175 mcg PO ACBREAKFAST [facility] Last Admin: 08/13/17 07:16 Dose: 175 mcg Nitroglycerin (Nitrostat) 0.4 mg SL ASDIRECTED PRN PRN Reason: Chest Pain Simvastatin (Zocor) 80 mg PO BEDTIME [facility] Last Admin: 08/12/17 23:00 Dose: 80 mg Sodium Chloride (Saline Flush) 10 ml FLUSH ASDIRECTED PRN PRN Reason: Keep Vein Open Last Admin: 08/13/17 07:17 Dose: 10 ml Sodium Chloride (Saline Flush) 10 ml FLUSH Q12HR PRN PRN Reason: Keep Vein Open Temazepam (Restoril) 15 mg PO BEDTIME PRN PRN Reason: Insomnia Last Admin: 08/12/17 23:00 Dose: 15 mg Tiotropium [place] (Spiriva Handihaler) 18 mcg INH DAILYRT [facility] Last Admin: 08/13/17 07:16 Dose: 1 inhalation Triamcinolone Acetonide (Triamcinolone Acetonide 0.1% Crm) 0 gm TOP BID PRN PRN Reason: Rash Discontinued Medications Aspirin (Aspirin) 324 mg CHEW ONETIME ONE Stop: 08/12/17 20:32 Last Admin: 08/12/17 20:46 Dose: 324 mg Famotidine (Pepcid) 40 mg IVPUSH ONETIME ONE Stop: 08/12/17 20:32 Last Admin: 08/12/17 20:53 Dose: 40 mg Metoprolol Tartrate (Lopressor) 2.5 mg IVPUSH ONETIME ONE Stop: 08/12/17 20:32 Last Admin: 08/12/17 20:46 Dose: 2.5 mg Ticagrelor (Brilinta) 180 mg PO ONETIME ONE Stop: 08/12/17 20:32 Last Admin: 08/12/17 20:46 Dose: 180 mg - Exam General: Reports: Alert, Oriented HEENT: Reports: Pupils Equal, Pupils Reactive, EOMI, Mucous Membr. Moist/[place] Neck: Reports: Supple Lungs: Reports: Clear to Auscultation, Normal Respiratory Effort Cardiovascular: Reports: Regular Rate, Regular Rhythm GI/Abdominal Exam: Normal Bowel Sounds, Soft, Non-Tender, No Organomegaly, No Distention, No Abnormal Bruit, No Mass, Pelvis Stable (Male) Exam: No Hernia, Normal Inspection, Normal Prostate, Circumcised Rectal (Males) Exam: Normal Exam, Normal Rectal Tone, Prostate Normal Back Exam: Reports: Normal Inspection, Full Range of Motion Extremities: Normal Inspection, Normal Range of Motion, Non-Tender, No Pedal Edema, Normal Capillary Refill Skin: Reports: Warm, Dry, Intact Wound/Incisions: Reports: Healing Well Neurological: Reports: No New Focal Deficit Psy/Mental Status: Reports: Alert, Normal Affect, Normal Mood
[2017-08-14] MEDS ORDERED: Non-Formulary Medication 1 Each (Ranitidine Hcl [Zantac] 150 MG) PO SCH (08:00)
[2017-08-14] MEDS ORDERED: Aspirin 81 MG Tab.EC PO SCH (08:00)
[2017-08-14] MEDS ORDERED: Multivitamin Tab PO SCH (08:00)
[2017-08-14] MEDS ORDERED: Levothyroxine 150 MCG Tab PO SCH (08:00)
[2017-08-14] MEDS ORDERED: Clopidogrel 75 MG Tab PO SCH (08:00)
== END 2017-08-13 13:30 | disposition home or self-care (01) ==
LOC: LL.ED 20:21 → LL.MS 21:35
PROVIDERS: ADMIT Family Medicine; ATTEND Family Medicine
DX: R07.9 Chest pain, unspecified (principal); I25.10 Atherosclerotic heart disease of native coronary artery without angina pectoris; E78.00 Pure hypercholesterolemia, unspecified; I10 Essential (primary) hypertension; I45.10 Unspecified right bundle-branch block; E03.9 Hypothyroidism, unspecified; E78.5 Hyperlipidemia, unspecified; R73.9 Hyperglycemia, unspecified; M15.0 Primary generalized (osteo)arthritis; J44.9 Chronic obstructive pulmonary disease, unspecified; K21.9 Gastro-esophageal reflux disease without esophagitis; N40.0 Benign prostatic hyperplasia without lower urinary tract symptoms; F41.9 Anxiety disorder, unspecified; F32.9 Major depressive disorder, single episode, unspecified; Z79.82 Long term (current) use of aspirin; Z79.02 Long term (current) use of antithrombotics/antiplatelets; Z79.899 Other long term (current) drug therapy; Z88.5 Allergy status to narcotic agent; Z95.5 Presence of coronary angioplasty implant and graft; Z87.891 Personal history of nicotine dependence
CPT/HCPCS: 36415; 71045; 80053; 80061; 82272; 82550; 82553; 83036; 83605; 83735; 83880; 84443; 84484; 84550; 85025; 85379; 85610; 85730; 93005; 96372; 96374; 96375; 99285; A9270-GY; G0378; J1650; J3490; J7050; S0028

== ENCOUNTER 2019-03-07 14:56 | Inpatient (IN) | payer MEDICARE, BC ==
--- NOTE | 2019-03-07 15:51 | PCM.HP.2 ---
H&P History of Present Illness - General Date of Service: 03/07/19 Admit Problem/Dx: admitted to [facility] for rehab of PT/OT after L4-S1 decompression and fusion. Source of Information: Patient History Limitations: Reports: No Limitations - History of Present Illness Initial Comments - Free Text/Narative: Patient is being admitted to [facility] for rehab of PT/OT after L4-S1 decompression and fusion. He has a history of hypertension, which he takes Imdur, Hydroxyzine and Toprol for control. he has a history of hyperlipidemia which is managed with atorvastatin. He has hypothyroidism, which is controlled with levothyroxine. takes He has pretty good pain control post op. He rates his pain a 4/10 upon admission. He was receiving Oxycodone while in the hospital. He states that this medication causes him to have insomnia. He would prefer not to be on this medication. We will re-evaluate pain medication management. Back Pain Score (Numeric/FACES): 4 - Related Data Allergies/Adverse Reactions: Allergies Allergy/AdvReac Type Severity Reaction Status Date / Time oxycodone Allergy Hyperactivi Verified 08/12/17 20:29 ty Home Medications: Home Meds Aspirin [Halfprin] 81 mg PO DAILY 06/19/15 [History] Nitroglycerin [Nitrostat] 0.4 mg SL ASDIRECTED PRN 08/12/17 [History] Acetaminophen 1,000 mg PO TID 03/07/19 [History] Baclofen 10 mg PO DAILY@1200 03/07/19 [History] Isosorbide Mononitrate [Imdur] 30 mg PO DAILY 03/07/19 [History] Levothyroxine [Synthroid] 88 mcg PO DAILY 03/07/19 [History] Melatonin 6 mg PO BEDTIME 03/07/19 [History] Pantoprazole [ProTONIX] 40 mg PO DAILY 03/07/19 [History] Sennosides/Docusate Sodium [Senna Plus Tablet] 1 each PO BID 03/07/19 [History] Tiotropium [Spiriva HandiHaler] 18 mcg INH DAILY 03/07/19 [History] atorvaSTATin [Lipitor] 80 mg PO DAILY@1800 03/07/19 [History] hydrOXYzine pamoate [Vistaril] 50 mg PO TID 03/07/19 [History] Past Medical History HEENT History: Reports: Cataract, Hard of Hearing, Impaired Vision, Other (See Below) Other HEENT History: Previous nasal fracture requiring surgery as below. Patient wears reading glasses. Bilateral hearing aid therapy. Cardiovascular History: Reports: Arrhythmia, CAD, High Cholesterol, Hypertension , Stents, Other (See Below) Other Cardiovascular History: Complete right bundle branch block. History of PTCA/stents including repeat procedures as below. Borderline cardiomegaly and left atrial enlargement by echocardiogram in 2016 as below. Dyslipidemia. Respiratory History: Reports: COPD, Other (See Below) Other Respiratory History: Benign pulmonary granulomas. COPD by chest x-ray with current inhaler therapy Gastrointestinal History: Reports: Bowel Obstruction, Chronic Constipation, Colon Polyp, Diverticulosis, Gastritis, GERD, Hepatitis, Hiatal Hernia, Irritable Bowel Syndrome, PUD, Other (See Below) Other Gastrointestinal History: Ileus secondary to gastric outlet obstruction on 07/05/12. GERD with Avery's esophagitis. Hepatitis of unknown type at about age 12. Genitourinary History: Reports: BPH, Other (See Below) Other Genitourinary History: Benign left renal cysts by CT scan Musculoskeletal History: Reports: Amputation, Arthritis, Back Pain, Chronic, Neck Pain, Chronic, Osteoarthritis, Other (See Below) Other Musculoskeletal History: Bilateral chronic feet pain with secondary disability. 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 Nasal fracture in 1967. Distal phalangeal fracture of digit #3 of the left hand in about 2001. 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 Neurological History: Reports: Concussion, Headaches, Chronic, Head Trauma, Neuropathy, Peripheral, Other (See Below) Other Neuro History: Mild head concussion secondary to minor fall on the ice in about 2013 Psychiatric History: Reports: Anxiety, Depression Endocrine/Metabolic History: Reports: Hypothyroidism, Other (See Below) Other Endocrine/Metabolic History: Agent [place] exposure in the Hematologic History: Reports: None Immunologic History: Reports: None Oncologic (Cancer) History: Reports: None Dermatologic History: Reports: Other (See Below) Other Dermatologic History: atopic dermatitis over the left skull region - Infectious Disease History Infectious Disease History: Reports: Chicken Pox, Shingles, Other (See Below) Other Infectious Disease History: Hepatitis of unknown type at about age 12. - Past Surgical History Head Surgeries/Procedures: Reports: None HEENT Surgical History: Reports: Adenoidectomy, Cataract Surgery, Naso-Sinus Surgery, Oral Surgery, Tonsillectomy, Other (See Below) Other HEENT Surgeries/Procedures: Left sided cataract surgery in about 2013 with right-sided cataract extraction in 2012. Nasal fracture repair in 1967. Complete upper teeth extraction with additional multiple teeth extractions. [place] teeth extraction 4 in 1959. Tonsillectomy and adenoidectomy in 1967 at time of nasal fracture repair as above. Cardiovascular Surgical History: Reports: Coronary Artery Stent, Percutaneous Transluminal Angioplasty, Other (See Below) Other Cardiovascular Surgeries/Procedures: Initial metal stent placement of the proximal circumflex and distal right coronary artery in February 2015 with subsequent PTCA and drug-eluting stent placed for revascularization of previous stent site at the proximal circumflex coronary artery on 11/01/15 Respiratory Surgical History: Reports: None GI Surgical History: Reports: Colonoscopy, EGD, Hernia, Abdominal, Hernia, Inguinal, Polypectomy, Other (See Below) Other GI Surgeries/Procedures: EGD with biopsies on 07/26/17. Last colonoscopy at the [facility] in May 2012 with excision of benign colonic polyp at that time. Previous EGDs on 02/14/15 and in May 2012 in the [place] in [place]. Umbilical hernia repair in about 2007. Left inguinal hernia repair 2 in his 40s and then decompression of the inguinal nerves and adhesion lysis of the left inguinal region in June 2012. Male Surgical History: Reports: Circumcision, TURP-Transurethral Resection of Prostate, Other (See Below) Other Male Surgeries/Procedures: Circumcision as an infant. TURP 2 in his early 60s Endocrine Surgical History: Reports: None Neurological Surgical History: Reports: C-Spine, Sacral Spine, Spinal Fusion, Thoracic Spine, Other (See Below) Other Neurological Surgeries/Procedures: Spinal fusion of the cervical spine at about age 46 with subsequent spinal fusion of the upper thoracic region and his 50s?. Additional probable laminectomy and his sacral region in his late 50s. Musculoskeletal Surgical History: Reports: Carpal Tunnel, Other (See Below) Other Musculoskeletal Surgeries/Procedures:: Bilateral carpal tunnel release in the Oncologic Surgical History: Reports: None Dermatological Surgical History: Reports: None - Past Imaging History Past Imaging History: Reports: Angiography (Last heart catheterization on ), Cardiac Echo (02/11/16 with ejection fraction of 6065 percent and otherwise findings as above), CAT Scan (CT of the head on 04/09/14. CT of the abdomen and pelvis on 06/25/12.), Stress Testing (Low level cardiac stress test on 11/28/15 with previous positive Cardiolite stress test on 02/28/15 indicating inferolateral cardiac ischemia with ejection fraction of 76%. Low level cardiac stress test on 03/13/15.) Social & Family History - Family History HEENT: Reports: None Cardiac: Reports: Blood Clots/VTE/DVT, Heart Failure, Hypertension, Pacemaker, Other (See Below) Other Cardiac Family History: Father with history of recurrent DVTs and fatal CHF in his 80s. Hypertension in brother and father. Pacemaker in mother. Respiratory: Reports: None, Sleep Apnea, Other (See Below) Other Respiratory Family Hisory: Sleep apnea in 2 brothers GI: Reports: Cholelithiasis, Other (See Below) Other GI Family History: Mother with cholelithiasis : Reports: None OBGYN: Reports: None Musculoskeletal: Reports: None Neurological: Reports: Alzheimers Disease, CVA, Dementia, Migraines, TIA, Other (See Below) Other Neurological Family History: Mother with fatal organic brain syndrome at age 78. Brother with organic brain syndrome at age 77 with possible alcoholic encephalopathy. Mother with history of TIAs recurrent nature. Father with recurrent CVAs initially in his 60s. Sister with migraine headaches Psychiatric: Reports: Anxiety, Depression, Other (See Below) Other Psychiatric Family History: Anxiety depression disorder in 6 brothers and 2 sisters with all having alcohol abuse Endocrine/Metabolic: Reports: Diabetes, type II, Other (See Below) Other Endocrine/Metabolic Family History: Diabetes mellitus in paternal grandfather Hematologic: Reports: None Immunologic: Reports: None Dermatologic: Reports: None Oncologic: Reports: Liver, Prostate, Other (See Below) Other Oncologic Family History: Sister with fatal unknown type of cancer in her 50s; brother with fatal throat cancer in his 70s with history of alcohol abuse; sister with unknown type of fatal cancer at age 75. Another brother with fatal liver cancer likely secondary to alcohol abuse in his 70s. Brother with prostate cancer in his late 70s. - Caffeine Use Caffeine Use: Reports: Coffee (6 cups of coffee per day), Soda (Occasional), Tea (Occasional 2 times per month). Denies: Energy Drinks - Living Situation & Occupation Living situation: Reports: (1965, 3 children), with Family () Occupation: Disabled ([facility] at age 56 through [facility] secondary to his chronic bilateral feet pain with patient previously working at [employer] in [employer]) H&P Review of Systems - Review of Systems: Review Of Systems: See Below General: Reports: No Symptoms HEENT: Reports: No Symptoms Pulmonary: Reports: No Symptoms Cardiovascular: Reports: No Symptoms Gastrointestinal: Reports: No Symptoms Genitourinary: Reports: No Symptoms Musculoskeletal: Reports: Back Pain, Leg Pain Skin: Reports: Wound Psychiatric: Reports: No Symptoms Neurological: Reports: No Symptoms Hematologic/Lymphatic: Reports: No Symptoms Immunologic: Reports: No Symptoms Exam - Exam Exam: See Below - Exam General: Alert, Oriented, Cooperative HEENT: Conjunctiva Clear, EACs Clear, Hearing Intact, Mucosa Moist & [place], Pupils Equal, Pupils Reactive Neck: Supple Lungs: Clear to Auscultation, Normal Respiratory Effort Cardiovascular: Regular Rate, Regular Rhythm, Normal S1, Normal S2 GI/Abdominal Exam: Normal Bowel Sounds, Soft, Non-Tender (Male) Exam: Deferred Rectal (Males) Exam: Deferred Back Exam: Decreased Range of Motion Extremities: Normal Inspection, No Pedal Edema Skin: Warm, Dry, Intact, Incision (covered by bandage) Neuro Extensive - Mental Status: Alert, Oriented x3, Normal Mood/Affect, Normal Cognition Psychiatric: Alert, Normal Affect, Normal Mood - Problem List (1) Status post lumbar spine operative procedure for decompression of spinal cord SNOMED Code(s): 746482703, [id number] ICD Code: Z98.890 - OTHER SPECIFIED POSTPROCEDURAL STATES Status: Acute Current Visit: Yes Problem Details: Patient underwent L4-S1 decompression and fusion. Incision to lumbar back and closed with autumn. Dressing inplace. Being admitted for pain control and PT/OT (2) Hypertension SNOMED Code(s): 34852681 ICD Code: I10 - ESSENTIAL (PRIMARY) HYPERTENSION Status: Acute Current Visit: Yes Problem Details: Will monitor BP while here in hospital Qualifiers: Hypertension type: essential hypertension Qualified Code(s): I10 - Essential (primary) hypertension (3) Neuropathic pain SNOMED Code(s): 975364905 ICD Code: M79.2 - NEURALGIA AND NEURITIS, UNSPECIFIED Status: Acute Current Visit: Yes Problem Details: Tramadol will be used intiially for pain control from recent back surgery. Will monitor for ongoing neuropathic pain as this was a previous diagnosis for patient. He was previously on Gabapentin per his report Problem List Initiated/Reviewed/Updated: Yes - Mortality Measure Prognosis:: Good
[2019-03-07] MEDS ORDERED: Nitroglycerin 0.4 MG Tab.SL SL PRN (16:02)
--- OUTSIDE RECORDS SUMMARY | 2019-03-07 16:08 | XMSREPORT ---
:1945 Author Organization [facility] Address [address] [place] [address] Care Team Providers Name Role Phone Berna Delgado MD Primary Care Provider Provider, No Attributed RESOURCE Attributed Provider Unavailable Reason for Visit Auth/Cert (Routine) Status Reason Specialty Diagnoses / Procedures Referred By Referred To Contact Contact Continuity of Diagnoses Other intervertebral disc displacement, lumbar region Spinal stenosis, lumbar region with neurogenic claudication Anabel Briseno, Care Procedures ARTHODESIS SINGLE INTERSPACE ARTHODESIS EA ADDL INTERSPACE POSTR ENOCH INSTRUMENTATION 3-6 VERT SEG INSERT INTERBODY BIOMECHANICAL DEVICE(S) W/ EA INTERSPACE ALLOGRAFT SPINE SURGERY ONLY MORSELIZED AUTOGRAFT SPINE SURGERY ONLY LOCAL SAME INCISION STEREOTACTIC NON-MANUAL SPINAL [address] [place] [address] Encounter Details Date Type Department Care Team Description 03/01/2019 - Hospital Encounter [facility] Tanner Briseno Displacement of lumbar 03/07/2019 CENTER 6[facility] NAUN Small MD intervertebral disc [facility] [address] without myelopathy [address] [place] [id number] [phone] Allergies Active Allergy Reactions Severity Noted Date Comments Hydrocodone Other (Specify in Comments) 08/08/2016 Insomnia documented as of this encounter (statuses as of 03/07/2019) Medications Medication Sig Dispensed Refills Start End Date Status Date levothyroxine Take 88 mcg by 0 Active (SYNTHROID) 88 mouth 1 time mcg tablet per day. pantoprazole Take 40 mg by 0 Active (PROTONIX) 40 mg mouth 1 time 6 enteric coated per day tablet isosorbide Take 30 mg by 0 Active mononitrate mouth 1 time 6 (IMDUR) 30 mg SR per day tablet (24 hr) aspirin (ECOTRIN Take 81 mg by 0 Active LOW STRENGTH) 81 mouth 1 time 5 MG enteric coated per day tablet atorvaSTATin Take 80 mg by 0 Active calcium (LIPITOR) mouth 1 time a 6 80 mg tablet day in the evening nitroglycerin Dissolve 0.4 mg 0 Active (NITROSTAT) 0.4 under the 5 mg sublingual tongue Every 5 tablet minutes as needed for chest pain docusate sodium Take by mouth 2 0 Active (COLACE) 50 MG times a day CAPS capsule tiotropium Inhale 18 mcg 0 Active (SPIRIVA) 18 MCG orally 1 time aer cap per day Using the handihaler device,inhale contents of 1 capsule(18 mcg) using 2 inhalations per capsule/day metoprolol Take 75 mg by 0 03/11/20 Active tartrate 75 MG mouth 2 times a 9 20 TABSIndications: day S/P lumbar fusion, Essential hypertension baclofen Take 1 tablet 180 tablet 0 04/06/20 Active (LIORESAL) 10 mg (10 mg) by 9 19 tabletIndications mouth 1 time : S/P lumbar per day at noon fusion, Essential hypertension hydrOXYzine Take 1 capsule 270 capsule 4 03/11/20 Active pamoate (50 mg) by 9 20 (VISTARIL) 50 mg mouth 3 times a capsuleIndication day s: S/P lumbar fusion, Essential hypertension melatonin 3 mg Take 2 tablets 30 tablet 0 Active tabletIndications (6 mg) by mouth 9 : S/P lumbar every night at fusion, Essential bedtime hypertension senna-docusate Take 1 tablet 0 Active sodium by mouth 2 9 (SENOKOT-S;SANDRITA times a day LACE) 8.6-50 MG tabletIndications : S/P lumbar fusion, Essential hypertension acetaminophen Take 2 tablets 100 tablet 0 Active (TYLENOL) 500 mg (1,000 mg) by 9 tabletIndications mouth 3 times a : S/P lumbar day fusion, Essential hypertension polyethylene Take 1 packet 0 Active glycol (MIRALAX) by mouth 1 time 9 packetIndications per day : S/P lumbar Dissolve in 4 fusion, Essential to 8 ounces of hypertension water, juice, soda, coffee, tea. ibuprofen Take 800 mg by 0 03/01/20 Discontinued (MOTRIN) 800 mg mouth as 19 (data entry operator tablet needed. Twice error) daily as needed triamcinolone Apply to 0 03/07/20 Discontinued acetonide affected area 3 19 (Stop Taking at (KENALOG,ARISTOCO times a day as Discharge) RT) 0.1 % cream needed for rash. metoprolol Take 50 mg by 0 03/07/20 Discontinued tartrate mouth 2 times a 6 19 (Stop Taking at (LOPRESSOR) 100 day Discharge) mg tablet MULTIPLE VITAMIN Take 1 tablet 0 03/07/20 Discontinued PO by mouth 1 time 19 (Stop Taking at per day Discharge) traMADol (ULTRAM) Take 50 mg by 0 03/01/20 Discontinued 50 mg tablet mouth every 6 7 19 (data entry operator hours as needed error) acetaminophen Take 1,300 mg 0 03/07/20 Discontinued (TYLENOL 8 HOUR) by mouth every 6 19 (Stop Taking at 650 mg CR tablet night at Discharge) bedtime documented as of this encounter (statuses as of 03/07/2019) Active Problems Problem Noted Date Foraminal stenosis of lumbar region 12/15/2018 Stenosis of lateral recess of lumbar spine 12/15/2018 S/P lumbar discectomy 12/15/2018 BPH (benign prostatic hypertrophy) with urinary obstruction 01/25/2012 Special screening for malignant neoplasm of prostate 05/21/2008 Essential hypertension documented as of this encounter (statuses as of 03/07/2019) Social History Tobacco Use Types Packs/Day Years Used Date Former Smoker Cigarettes Quit: 04/26/1997 Smokeless Tobacco: Never Used Alcohol Use Drinks/Week oz/Week Comments Yes 1 Cans of beer 1.0 occasional Physical Activity Answer Date Recorded On average, how many days per week do you engage in moderate to 0 days 2018 strenuous exercise (like walking fast, running, jogging, dancing, swimming, biking, or other activities that cause a light or heavy sweat)? On average, how many minutes do you engage in exercise at this 0 min 2018 level? Sex Assigned at Date Recorded Not on file Job Start Date Occupation Industry Not on file Not on file Not on file Travel History Travel Start Travel End No recent travel history available. documented as of this encounter Last Filed Vital Signs Vital Sign Reading Time Taken Comments Blood Pressure 130/79 03/07/2019 10:15 AM ECONOMIC HISTORIAN Pulse 65 03/07/2019 10:10 AM ECONOMIC HISTORIAN Temperature 36.8 C (98.2 F) 03/07/2019 8:00 AM ECONOMIC HISTORIAN Respiratory Rate 16 03/07/2019 10:10 AM ECONOMIC HISTORIAN Oxygen Saturation 96% 03/07/2019 10:10 AM ECONOMIC HISTORIAN Inhaled Oxygen Concentration - - Weight 86.1 kg (189 lb 12.8 oz) 03/01/2019 5:29 AM ECONOMIC HISTORIAN Height 167.6 cm (5' 6") 03/01/2019 5:29 AM ECONOMIC HISTORIAN Body Mass Index 30.63 03/01/2019 5:29 AM ECONOMIC HISTORIAN documented in this encounter Functional Status Functional Status Response Date of Assessment Is the person deaf or does he/she have serious difficulty No 02/27/2019 hearing? Is this person blind or does he/she have difficulty No 02/27/2019 seeing even when wearing glasses? Do you have difficulty with walking, balance, climbing Yes 03/01/2019 stairs, or had a fall in the last 3 months? Does the patient have difficulty dressing or bathing? No 02/27/2019 Because of a physical, mental, or emotional condition; No 02/27/2019 does this person have difficulty doing errands alone such as visiting a doctor's office or shopping? Cognitive Status Response Date of Assessment Because of a physical, mental, or emotional condition; No 02/27/2019 does this person have serious difficulty concentrating, remembering, or making decisions? documented as of this encounter Discharge Summaries Ihsan Ravi PA-C - 03/07/2019 10:18 AM [facility] Summary Attending Physician: Anabel Briseno MD Attending Physician Specialty: Neurological Surgery Admit Date: 03/01/2019 Discharge Date: 03/07/19 Primary Care Physician: Berna Delgado MD Discharge Diagnoses S/p lumbar fusion Hospital Course Sai is a 73yo male who underwent L4-S1 fusion on 03/01/2019. Post-operatively, he is doing well. He had some left ankle/foot pain, but that is improved with medications. He is ambulating well, and therapies have cleared him to discharge to a SNF. He will follow up in neurosurgery clinic in 6 weeks with xrays and PT prior. All discharge instructions were reviewed with patient. Physical Exam Physical Exam General:healthy, alert, no distress Neuro: alert, oriented, normal speech Incision well approximated, no erythema or drainage noted Extremities: Right: Iliopsoas 5/5, quadricep 5/5, hamstring 5/5, DF 5/5, PF 5/5 Left: Iliopsoas 5/5, quadricep 5/5, hamstring 5/5, DF 5/5, PF 5/5 Sensation intact in bilateral L4-S1 dermatomes Procedures Performed and Findings All procedures during admission Procedure(s): ROBOTIC L4-S1 DECOMPRESSION & FUSION WITH NEURO MONITORING Medical Decision Making A total of 20 minutes were spent on discharge coordination. documented in this encounter Medications at Time of Discharge Medication Sig Dispensed Refills Start Date End Date metoprolol tartrate 75 Take 75 mg by mouth 0 03/07/2019 03/11/2020 MG TABSIndications: S/P 2 times a day lumbar fusion, Essential hypertension baclofen (LIORESAL) 10 Take 1 tablet (10 180 tablet 0 03/07/20192018 mg tabletIndications: mg) by mouth 1 time S/P lumbar fusion, per day at noon Essential hypertension hydrOXYzine pamoate Take 1 capsule (50 270 capsule 4 03/07/2019 03/11/2020 (VISTARIL) 50 mg mg) by mouth 3 times capsuleIndications: S/P a day lumbar fusion, Essential hypertension melatonin 3 mg Take 2 tablets (6 30 tablet 0 03/07/2019 tabletIndications: S/P mg) by mouth every lumbar fusion, night at bedtime Essential hypertension senna-docusate sodium Take 1 tablet by 0 03/07/2019 (SENOKOT-S;PERICOLACE) mouth 2 times a day 8.6-50 MG tabletIndications: S/P lumbar fusion, Essential hypertension polyethylene glycol Take 1 packet by 0 03/08/2019 (MIRALAX) mouth 1 time per day packetIndications: S/P Dissolve in 4 to 8 lumbar fusion, ounces of water, Essential hypertension juice, soda, coffee, tea. pantoprazole (PROTONIX) Take 40 mg by mouth 0 10/22/2015 40 mg enteric coated 1 time per day tablet isosorbide mononitrate Take 30 mg by mouth 0 03/04/2016 (IMDUR) 30 mg SR tablet 1 time per day (24 hr) aspirin (ECOTRIN LOW Take 81 mg by mouth 0 03/05/2015 STRENGTH) 81 MG enteric 1 time per day coated tablet atorvaSTATin calcium Take 80 mg by mouth 0 03/04/2016 (LIPITOR) 80 mg tablet 1 time a day in the evening nitroglycerin Dissolve 0.4 mg 0 03/05/2015 (NITROSTAT) 0.4 mg under the tongue sublingual tablet Every 5 minutes as needed for chest pain docusate sodium Take by mouth 2 0 (COLACE) 50 MG CAPS times a day capsule tiotropium (SPIRIVA) 18 Inhale 18 mcg orally 0 MCG aer cap 1 time per day Using the handihaler device,inhale contents of 1 capsule(18 mcg) using 2 inhalations per capsule/day levothyroxine Take 88 mcg by mouth 0 (SYNTHROID) 88 mcg 1 time per day. tablet acetaminophen (TYLENOL) Take 2 tablets 100 tablet 0 03/07/2019 500 mg (1,000 mg) by mouth tabletIndications: S/P 3 times a day lumbar fusion, Essential hypertension documented as of this encounter Progress Notes Linnea Gray MD - 03/06/2019 1:57 PM CST DAILY PROGRESS NOTE ASSESSMENT & PLAN Mr. Karen Sharma is a 73-year-old gentleman with medical history significant for hypertension, coronary artery disease status post PCI, hypothyroidism, probable COPD, and history of tobacco use, who is admitted to the hospital for L4-S1 decompression and fusion on 03/01/19. Internal medicine is consulted for medical management. 1. S/p L4-S1 decompression with fusion on 03/01/2019. - Pain and bowel regimen as ordered - TLSO brace when up - Drain removed 03/04/2019. - Incentive spirometry - PT OT continue to work with the patient - Encourage ambulation 2. Hypertension. Blood pressures reviewed On home dose of Lopressor and Imdur. 3. Coronary artery disease, status post PCI about 4 years ago. No new symptoms - aspirin, beta gucci, Imdur, and statin. - Aspirin to be restarted per neurosurgery. 4. Hypothyroidism. On levothyroxine. 5. COPD. Not in exacerbation. On Incruse Ellipta. 6. History of smoking- quit smoking about 15 years ago. Up until then, he was smoking 4 packs per day. GI prophylaxis. On PPI. DVT prophylaxis. On subcu heparin. Disposition: Pending placement- recommended by OT- CM profiled him out today in agreement SUBJECTIVE/ROS No new complaints this a.m. No chest pain. Unsteady per Has chronic pain left leg / ankle Medications gabapentin (NEURONTIN) capsule 900 mg 900 mg Oral 3 times a day hydrOXYzine pamoate (VISTARIL) capsule 50 mg 50 mg Oral 3 times a day baclofen (LIORESAL) tablet 10 mg 10 mg Oral 2 times a day aspirin enteric coated tablet 81 mg 81 mg Oral daily 81 mg at 03/06/19818 melatonin tablet 6 mg 6 mg Oral at bedtime 6 mg at 03/05/192046 heparin (porcine) injection solution 5,000 Units 5,000 Units Subcutaneous Every 12 hours 5,000 Units at 03/06/19 0820 potassium & sodium phosphates (PHOS-NaK) 280-160-250 MG packet 1 packet 1 packet Oral 3 times a day 1 packet at 03/06/19 08 isosorbide mononitrate (IMDUR) SR tablet (24 hr) 30 mg 30 mg Oral daily 30 mg at 03/06/19 08 levothyroxine tablet 88 mcg 88 mcg Oral daily 88 mcg at 03/06/19 0819 oxyCODONE (OXY-IR) tablet 5-10 mg 5-10 mg Oral Every 4 hours prn 5 mg at 1247 fentaNYL 100 mcg/2 mL preservative free injection solution 50 mcg 50 mcg IV Every 1 hour prn senna-docusate sodium (SENOKOT-S;PERICOLACE) tablet 1 tablet 1 tablet Oral 2 times a day 1 tablet at 03/06/19 0820 docusate sodium (COLACE) capsule 100 mg 100 mg Oral 2 times a day 100 mg at 03/06/19 0819 polyethylene glycol (MIRALAX) packet 1 packet 1 packet Oral Daily 1 packet at 03/06/19 0820 lactulose oral solution (10 gm/15 mL) 30 mL 30 mL Oral Daily Stopped at 02/11 0832 bisacodyl (DULCOLAX) suppository 10 mg 10 mg Rectal Daily Stopped at 0833 ondansetron (ZOFRAN) injection solution 4 mg 4 mg IV Every 4 hours prn haloperidol lactate (HALDOL) injection solution 2.5 mg 2.5 mg IV Every 6 hours prn benzocaine-menthol (CEPACOL w/ BENZOCAINE) lozenge 1 lozenge 1 lozenge Mouth/Throat Every 4 hours prn acetaminophen (TYLENOL) tablet 650 mg 650 mg Oral Every 6 hours 650 mg at 03/06/19 1111 atorvaSTATin (LIPITOR) tablet 80 mg 80 mg Oral Every evening 80 mg at 03/05 2047 metoprolol tartrate (LOPRESSOR) tablet 50 mg 50 mg Oral 2 times a day 50 mg at 03/06/19 0820 nitroglycerin (NITROSTAT) sublingual tablet 0.4 mg 0.4 mg Sublingual Every 5 minutes prn pantoprazole (PROTONIX) enteric coated tablet 40 mg 40 mg Oral daily 40 mg at 03/06/19 0545 umeclidinium (INCRUSE ELLIPTA) 62.5 mcg/puff inhaler 1 puff 1 puff Inhalation daily 1 puff at 03/05/19 1006 OBJECTIVE Current Vital Signs Temp: 98 F (36.7 C) BP: 104/74 Pulse: 76 O2 Device: Room Air O2 Flow Rate (L/min): 2 l/min Resp: 16 Pain Ratin Pain Ratin (out of 10) Weight: 86.1 kg (189 lb 12.8 oz) SpO2: 92 % Vitals Min/Max Last 24 Hours Vital Signs Min/Max (last 24 hours) Flowsheet Row Name Min Max Temp 97.9 F (36.6 C) 98.7 F (37.1 C) BP: Systolic 104 172 BP: Diastolic 74 95 Pulse 72 88 Resp 16 16 SpO2 91 % 95 % MAP (mm Hg) 84 mm Hg 110 mm Hg Intake and Output Last 24 Hours 03/05 0700 - 03/06 0659 In: 360 Out: - Lines and Drains Patient Lines/Drains/Airways Status Active Lines Name: Placement date: Placement time: Site: Days: Peripheral IV 03/01/19 Hand Right;Top 03/01/19 0607 Hand 5 Incision 12/03/11 Inner Other (Comment) Incision 12/03/11 Other ( Comment) 3290 Incision 03/01/19 Lower;Mid Back Incision 03/01/19 0759 Back 5 Review of system no chest pain, no headache, no abdominal pain, has mild back pain 3/10, has chronic left ankle painno rash, - Physical Exam General Appearance: No acute distress Lungs: Appears to be clear Heart: normal S1 S2, no pedal edema. Abdomen: soft, normal BS, non tender Neurological: alert and answering questions appropriately. Diagnostics and Labs Labs (Last day) No results found within the past day. Ihsan Lopes PA-C - 03/06/2019 9:02 AM ECONOMIC HISTORIAN Neurosurgery Progress Note Karen Sharma is a 73yr old male who underwent L4-S1 TLIF on 03/01/2019. S: Resting in bed, in good spirits Left leg pain much worse this AM, pain in left ankle and foot. Extremely hypersensitive to touch Therapy recommending SNF, they feel patient is fall risk O: Vital Signs: Temp: 98 F (36.7 C) | BP: 167/95 | Pulse: 76 | Resp: 16 | Pain Ratin Pain Ratin (out of 10) | Weight: 86.1 kg (189 lb 12.8 oz) | O2 Device: Room Air O2 Flow Rate (L/min): 2 l/min | SpO2: 92 % Physical Exam General:healthy, alert, no distress Neuro: alert, oriented, normal speech Incision well approximated, no erythema or drainage noted Extremities: Right: Iliopsoas 5/5, quadricep 5/5, hamstring 5/5, DF 5/5, PF 5/5 Left: Iliopsoas 5/5, quadricep 5/5, hamstring 5/5, DF 5/5, PF 5/5 Sensation intact in bilateral L4-S1 dermatomes A: 5 Days Post-Op Status Post: Procedure(s): ROBOTIC L4-S1 DECOMPRESSION & FUSION WITH NEURO MONITORING P: Diet as tolerated PT/OT following, encourage ambulation. Recommending SNF placement. Patient is agreeable. Gabapentin 900mg TID, add baclofen IM following for co-management TLSO when up Heparin SQ for DVT prophylaxis Ok to discharge to SNF once placement is found This patient was discussed with Dr. Briseno and he agrees with the assessment and plan. Ihsan Ravi PA-C [facility] [place] [place] Rohan Beth MD - 03/05/2019 6:28 PM CST DAILY PROGRESS NOTE SUMMARY Mr. Karen Sharma is a 73-year-old gentleman with medical history significant for hypertension, coronary artery disease status post PCI, hypothyroidism, probable COPD, and history of tobacco use, who is admitted to the hospital for L4-S1 decompression and fusion. Internal medicine is consulted for medical management. ASSESSMENT & PLAN #. L4-S1 decompression with fusion. - Pain control, bowel regimen, and DVT prophylaxis per neurosurgery. - On scheduled Tylenol and Neurontin. On as-needed oxycodone and fentanyl. On laxatives. - Drain removed 03/04/2019. #. Hypertension. On home dose of Lopressor and Imdur. #. Coronary artery disease, status post PCI about 4 years ago. On beta gucci , Imdur, and statin.Discussed with neurosurgery, aspirin can be restarted tomorrow, 03/06/2019. - Aspirin to be restarted per neurosurgery. #. Hypothyroidism. On levothyroxine. #. COPD. Not in exacerbation. On Incruse Ellipta. #. History of smoking. The patient reported that he quit smoking about 15 years ago. Up until then, he was smoking 4 packs per day. #. GI prophylaxis. On PPI. #. DVT prophylaxis. On subcu heparin. Disposition: Pending placement. This note was created, at least in part, with the use of [employer] Voice Dictation System. Inadvertenttypographical errors, due to software recognition problems, may still exist. SUBJECTIVE/ROS No acute events overnight. No new complaints this a.m. No chest pain. No shortness of breath. Noabdomen pain. Continues to complain of left foot pain, which is chronic. Medications [START ON 03/06/2019] aspirin enteric coated tablet 81 mg 81 mg Oral daily melatonin tablet 6 mg 6 mg Oral at bedtime 6 mg at 03/04/192024 heparin (porcine) injection solution 5,000 Units 5,000 Units Subcutaneous Every 12 hours 5,000 Units at 03/05/19 0832 potassium & sodium phosphates (PHOS-NaK) 280-160-250 MG packet 1 packet 1 packet Oral 3 times a day 1 packet at 03/05/19 1613 isosorbide mononitrate (IMDUR) SR tablet (24 hr) 30 mg 30 mg Oral daily 30 mg at 03/05/19 0832 levothyroxine tablet 88 mcg 88 mcg Oral daily 88 mcg at 03/05/19 0831 oxyCODONE (OXY-IR) tablet 5-10 mg 5-10 mg Oral Every 4 hours prn 10 mg at 03/03/19 1731 fentaNYL 100 mcg/2 mL preservative free injection solution 50 mcg 50 mcg IV Every 1 hour prn senna-docusate sodium (SENOKOT-S;PERICOLACE) tablet 1 tablet 1 tablet Oral 2 times a day Stopped at 03/05/19 0832 docusate sodium (COLACE) capsule 100 mg 100 mg Oral 2 times a day Stopped at 03/05/19 0833 polyethylene glycol (MIRALAX) packet 1 packet 1 packet Oral Daily Stopped at 03/05/19 0832 lactulose oral solution (10 gm/15 mL) 30 mL 30 mL Oral Daily Stopped at 02/11 0832 bisacodyl (DULCOLAX) suppository 10 mg 10 mg Rectal Daily Stopped at 0833 ondansetron (ZOFRAN) injection solution 4 mg 4 mg IV Every 4 hours prn haloperidol lactate (HALDOL) injection solution 2.5 mg 2.5 mg IV Every 6 hours prn benzocaine-menthol (CEPACOL w/ BENZOCAINE) lozenge 1 lozenge 1 lozenge Mouth/Throat Every 4 hours prn acetaminophen (TYLENOL) tablet 650 mg 650 mg Oral Every 6 hours 650 mg at 03/05/19 1255 gabapentin (NEURONTIN) capsule 300 mg 300 mg Oral 3 times a day 300 mg at 03/05/19 1613 atorvaSTATin (LIPITOR) tablet 80 mg 80 mg Oral Every evening 80 mg at 03/04 metoprolol tartrate (LOPRESSOR) tablet 50 mg 50 mg Oral 2 times a day 50 mg at 03/05/19 0831 nitroglycerin (NITROSTAT) sublingual tablet 0.4 mg 0.4 mg Sublingual Every 5 minutes prn pantoprazole (PROTONIX) enteric coated tablet 40 mg 40 mg Oral daily 40 mg at 03/05/19 0605 umeclidinium (INCRUSE ELLIPTA) 62.5 mcg/puff inhaler 1 puff 1 puff Inhalation daily 1 puff at 03/05/19 1006 OBJECTIVE Current Vital Signs Temp: 98.7 F (37.1 C) BP: 134/75 Pulse: 72 O2 Device: Room Air O2 Flow Rate (L/min): 2 l/min Resp: 16 Pain Ratin Pain Ratin (out of 10) Weight: 86.1 kg (189 lb 12.8 oz) SpO2: 95 % Vitals Min/Max Last 24 Hours Vital Signs Min/Max (last 24 hours) Flowsheet Row Name Min Max Temp 98.2 F (36.8 C) 99.2 F (37.3 C) BP: Systolic 130 178 BP: Diastolic 67 91 Pulse 64 86 Resp 16 16 SpO2 91 % 96 % MAP (mm Hg) 85 mm Hg 85 mm Hg Intake and Output Last 24 Hours 03/04 0700 - 03/05 0659 In: 660 Out: - Lines and Drains Patient Lines/Drains/Airways Status Active Lines Name: Placement date: Placement time: Site: Days: Peripheral IV 03/01/19 Hand Right;Top 03/01/19 0607 Hand 4 Incision 12/03/11 Inner Other (Comment) Incision 12/03/11 Other ( Comment) 2649 Incision 03/01/19 Lower;Mid Back Incision 03/01/19 0759 Back 4 Physical Exam General Appearance: Well nourished, well hydrated, appears to be in pain from sciatica. Lungs: No use of accessory muscles of respiration, CTA marky Heart: normal S1 S2, no pedal edema. Abdomen: soft, normal BS, non tender Neurological: alert and answering questions appropriately. Diagnostics and Labs Labs (Last day) No results found within the past day. Ihsan Lopes PA-C - 03/05/2019 11:06 AM ECONOMIC HISTORIAN Neurosurgery Progress Note Karen Sharma is a 73yr old male who underwent L4-S1 TLIF on 03/01/2019. S: Resting in bed, in good spirits Left leg pain improving Therapy recommending SNF, they feel patient is fall risk O: Vital Signs: Temp: 98.2 F (36.8 C) | BP: 178/91 | Pulse: 71 | Resp: 16 | Pain Ratin Pain Ratin (out of 10) | Weight: 86.1 kg (189 lb 12.8 oz) | O2 Device: Room Air O2 Flow Rate (L/min): 2 l/min | SpO2: 96 % Physical Exam General:healthy, alert, no distress Neuro: alert, oriented, normal speech Incision well approximated, no erythema or drainage noted Extremities: Right: Iliopsoas 5/5, quadricep 5/5, hamstring 5/5, DF 5/5, PF 5/5 Left: Iliopsoas 5/5, quadricep 5/5, hamstring 5/5, DF 5/5, PF 5/5 Sensation intact in bilateral L4-S1 dermatomes A: 4 Days Post-Op Status Post: Procedure(s): ROBOTIC L4-S1 DECOMPRESSION & FUSION WITH NEURO MONITORING P: Diet as tolerated PT/OT following, encourage ambulation. Recommending SNF placement. Patient is agreeable. IM following for co-management TLSO when up Heparin SQ for DVT prophylaxis Ok to discharge to SNF once placement is found This patient was discussed with Dr. Briseno and he agrees with the assessment and plan. Ihsan Ravi PA-C [facility] [place] [place] Rohan Beth MD - 03/04/2019 6:50 PM CST DAILY PROGRESS NOTE SUMMARY Mr. Karen Sharma is a 73-year-old gentleman with medical history significant for hypertension, coronary artery disease status post PCI, hypothyroidism, probable COPD, and history of tobacco use, who is admitted to the hospital for L4-S1 decompression and fusion. Internal medicine is consulted for medical management. ASSESSMENT & PLAN #. L4-S1 decompression with fusion. - Pain control, bowel regimen, and DVT prophylaxis per neurosurgery. - On scheduled Tylenol and Neurontin. On as-needed oxycodone and fentanyl. On laxatives. #. Hypertension. On home dose of Lopressor and Imdur. #. Coronary artery disease, status post PCI about 4 years ago. Aspirin on hold. On beta gucci, Imdur, and statin. - Aspirin to be restarted per neurosurgery. #. Hypothyroidism. On levothyroxine. #. COPD. Not in exacerbation. On Incruse Ellipta. #. History of smoking. The patient reported that he quit smoking about 15 years ago. Up until then, he was smoking 4 packs per day. #. GI prophylaxis. On PPI. #. DVT prophylaxis. On subcu heparin. Disposition: Pending placement. This note was created, at least in part, with the use of [employer] Voice Dictation System. Inadvertenttypographical errors, due to software recognition problems, may still exist. SUBJECTIVE/ROS No acute events overnight. No new complaints this a.m. Patient is sitting in chair and appears comfortable at the time of my visit. No chest pain. No shortness of breath. No abdomen pain. Taking good oral diet. Having bowel movements. He reports left leg pain is better. It is now mostly in his left foot. Medications melatonin tablet 6 mg 6 mg Oral at bedtime 6 mg at 03/04/19 0322 heparin (porcine) injection solution 5,000 Units 5,000 Units Subcutaneous Every 12 hours 5,000 Units at 03/04/19 0943 potassium & sodium phosphates (PHOS-NaK) 280-160-250 MG packet 1 packet 1 packet Oral 3 times a day 1 packet at 03/04/19 1601 isosorbide mononitrate (IMDUR) SR tablet (24 hr) 30 mg 30 mg Oral daily 30 mg at 03/04/19 0942 levothyroxine tablet 88 mcg 88 mcg Oral daily 88 mcg at 03/04/19 0942 oxyCODONE (OXY-IR) tablet 5-10 mg 5-10 mg Oral Every 4 hours prn 10 mg at 03/03/19 1731 fentaNYL 100 mcg/2 mL preservative free injection solution 50 mcg 50 mcg IV Every 1 hour prn senna-docusate sodium (SENOKOT-S;PERICOLACE) tablet 1 tablet 1 tablet Oral 2 times a day 1 tablet at 03/04/19 0942 docusate sodium (COLACE) capsule 100 mg 100 mg Oral 2 times a day 100 mg at 03/04/19 0942 polyethylene glycol (MIRALAX) packet 1 packet 1 packet Oral Daily 1 packet at 03/04/19 0943 lactulose oral solution (10 gm/15 mL) 30 mL 30 mL Oral Daily 30 mL at 03/04 0943 bisacodyl (DULCOLAX) suppository 10 mg 10 mg Rectal Daily ondansetron (ZOFRAN) injection solution 4 mg 4 mg IV Every 4 hours prn haloperidol lactate (HALDOL) injection solution 2.5 mg 2.5 mg IV Every 6 hours prn benzocaine-menthol (CEPACOL w/ BENZOCAINE) lozenge 1 lozenge 1 lozenge Mouth/Throat Every 4 hours prn acetaminophen (TYLENOL) tablet 650 mg 650 mg Oral Every 6 hours 650 mg at 03/04/19 1711 gabapentin (NEURONTIN) capsule 300 mg 300 mg Oral 3 times a day 300 mg at 03/04/19 1601 atorvaSTATin (LIPITOR) tablet 80 mg 80 mg Oral Every evening 80 mg at 03/03 1958 metoprolol tartrate (LOPRESSOR) tablet 50 mg 50 mg Oral 2 times a day 50 mg at 03/04/19 0942 nitroglycerin (NITROSTAT) sublingual tablet 0.4 mg 0.4 mg Sublingual Every 5 minutes prn pantoprazole (PROTONIX) enteric coated tablet 40 mg 40 mg Oral daily 40 mg at 03/04/19 0643 umeclidinium (INCRUSE ELLIPTA) 62.5 mcg/puff inhaler 1 puff 1 puff Inhalation daily 1 puff at 03/04/19 0833 OBJECTIVE Current Vital Signs Temp: 98 F (36.7 C) BP: 131/83 Pulse: 67 O2 Device: Room Air O2 Flow Rate (L/min): 2 l/min Resp: 16 Pain Ratin Pain Ratin (out of 10) Weight: 86.1 kg (189 lb 12.8 oz) SpO2: 100 % Vitals Min/Max Last 24 Hours Vital Signs Min/Max (last 24 hours) Flowsheet Row Name Min Max Temp 97.9 F (36.6 C) 98.4 F (36.9 C) BP: Systolic 100 189 BP: Diastolic 79 93 Pulse 59 82 Resp 16 18 SpO2 90 % 100 % MAP (mm Hg) 91 mm Hg 91 mm Hg Intake and Output Last 24 Hours 03/03 0700 - 03/04 0659 In: 500 Out: 147 Lines and Drains Patient Lines/Drains/Airways Status Active Lines Name: Placement date: Placement time: Site: Days: Peripheral IV 03/01/19 Hand Right;Top 03/01/19 0607 Hand 3 Incision 12/03/11 Inner Other (Comment) Incision 12/03/11 Other ( Comment) 2648 Incision 03/01/19 Lower;Mid Back Incision 03/01/19 0759 Back 3 Physical Exam General Appearance: Well nourished, well hydrated, appears to be in pain from sciatica. Lungs: No use of accessory muscles of respiration, CTA marky Heart: normal S1 S2, no pedal edema. Abdomen: soft, normal BS, non tender Neurological: alert and answering questions appropriately. Diagnostics and Labs Labs (Last day) No results found within the past day. eutsIhsan berumen PA-C - 03/04/2019 10:10 AM [facility] Neurosurgery Progress Note Karen Sharma is a 73yr old male who underwent L4-S1 TLIF on 03/01/2019. S: Resting in bed, in good spirits Left leg pain better this AM Therapy recommending SNF, they feel patient is fall risk O: Vital Signs: Temp: 97.9 F (36.6 C) | BP: 189/93 | Pulse: 72 | Resp: 18 | Pain Ratin Pain Ratin (out of 10) | Weight: 86.1 kg (189 lb 12.8 oz) | O2 Device: Room Air O2 Flow Rate (L/min): 2 l/min | SpO2: 92 % Physical Exam General:healthy, alert, no distress Neuro: alert, oriented, normal speech Incision well approximated, no erythema or drainage noted Drain intact, patent Extremities: Right: Iliopsoas 5/5, quadricep 5/5, hamstring 5/5, DF 5/5, PF 5/5 Left: Iliopsoas 5/5, quadricep 5/5, hamstring 5/5, DF 5/5, PF 5/5 Sensation intact in bilateral L4-S1 dermatomes A: 3 Days Post-Op Status Post: Procedure(s): ROBOTIC L4-S1 DECOMPRESSION & FUSION WITH NEURO MONITORING P: Diet as tolerated PT/OT following, encourage ambulation. Recommending SNF placement. Patient is agreeable. IM following for co-management Drain removed, patient tolerated well. DC abx TLSO when up Heparin SQ for DVT prophylaxis Ok to discharge to SNF once placement is found This patient was discussed with Dr. Briseno and he agrees with the assessment and plan. Ihsan Ravi PA-C [facility] [place] [place] Rohan Beth MD - 03/03/2019 7:46 PM CST DAILY PROGRESS NOTE SUMMARY Mr. aKren Sharma is a 73-year-old gentleman with medical history significant for hypertension, coronary artery disease status post PCI, hypothyroidism, probable COPD, and history of tobacco use, who is admitted to the hospital for L4-S1 decompression and fusion. Internal medicine is consulted for medical management. ASSESSMENT & PLAN #. L4-S1 decompression with fusion. - Pain control, bowel regimen, and DVT prophylaxis per neurosurgery. - On scheduled Tylenol and Neurontin. On as-needed oxycodone and fentanyl. On laxatives. #. Hypertension. On home dose of Lopressor. Restart Imdur. #. Coronary artery disease, status post PCI about 4 years ago. Aspirin on hold. On beta gucci, Imdur, and statin. - Aspirin to be restarted per neurosurgery. #. Hypothyroidism. On levothyroxine. #. COPD. Not in exacerbation. On Incruse Ellipta. #. History of smoking. The patient reported that he quit smoking about 15 years ago. Up until then, he was smoking 4 packs per day. #. GI prophylaxis. On PPI. #. DVT prophylaxis. On subcu heparin. Disposition: per NS. This note was created, at least in part, with the use of [employer] Dictation System. Inadvertenttypographical errors, due to software recognition problems, may still exist. SUBJECTIVE/ROS No acute events overnight. No new complaints this a.m. No chest pain. No shortness of breath. Noabdomen pain. Dizziness improving. Reports sciatic pain in the left leg, which is chronic. Medications heparin (porcine) injection solution 5,000 Units 5,000 Units Subcutaneous Every 12 hours 5,000 Units at 03/03/19 1028 potassium & sodium phosphates (PHOS-NaK) 280-160-250 MG packet 1 packet 1 packet Oral 3 times a day 1 packet at 03/03/19 1442 levothyroxine tablet 88 mcg 88 mcg Oral daily 88 mcg at 03/03/19 0837 oxyCODONE (OXY-IR) tablet 5-10 mg 5-10 mg Oral Every 4 hours prn 10 mg at 03/03/19 1731 fentaNYL 100 mcg/2 mL preservative free injection solution 50 mcg 50 mcg IV Every 1 hour prn senna-docusate sodium (SENOKOT-S;PERICOLACE) tablet 1 tablet 1 tablet Oral 2 times a day 1 tablet at 03/02/194 docusate sodium (COLACE) capsule 100 mg 100 mg Oral 2 times a day Stopped at 03/03/19 0837 polyethylene glycol (MIRALAX) packet 1 packet 1 packet Oral Daily Stopped at 03/03/19 0837 lactulose oral solution (10 gm/15 mL) 30 mL 30 mL Oral Daily [START ON 03/04/2019] bisacodyl (DULCOLAX) suppository 10 mg 10 mg Rectal Daily ondansetron (ZOFRAN) injection solution 4 mg 4 mg IV Every 4 hours prn haloperidol lactate (HALDOL) injection solution 2.5 mg 2.5 mg IV Every 6 hours prn benzocaine-menthol (CEPACOL w/ BENZOCAINE) lozenge 1 lozenge 1 lozenge Mouth/Throat Every 4 hours prn acetaminophen (TYLENOL) tablet 650 mg 650 mg Oral Every 6 hours 650 mg at 03/03/19 1646 gabapentin (NEURONTIN) capsule 300 mg 300 mg Oral 3 times a day 300 mg at 03/03/19 1442 ceFAZolin (ANCEF) 2000 mg/20 mL sterile water IV syringe 2,000 mg IV Every 8 hours 2,000 mg at 03/03/19 1547 atorvaSTATin (LIPITOR) tablet 80 mg 80 mg Oral Every evening 80 mg at 03/02 2124 metoprolol tartrate (LOPRESSOR) tablet 50 mg 50 mg Oral 2 times a day 50 mg at 03/03/19 0837 nitroglycerin (NITROSTAT) sublingual tablet 0.4 mg 0.4 mg Sublingual Every 5 minutes prn pantoprazole (PROTONIX) enteric coated tablet 40 mg 40 mg Oral daily 40 mg at 03/03/19 0648 umeclidinium (INCRUSE ELLIPTA) 62.5 mcg/puff inhaler 1 puff 1 puff Inhalation daily 1 puff at 03/03/19 0928 OBJECTIVE Current Vital Signs Temp: 98.4 F (36.9 C) BP: 167/85 Pulse: 82 O2 Device: Room Air O2 Flow Rate (L/min): 2 l/min Resp: 16 Pain Ratin Pain Ratin (out of 10) Weight: 86.1 kg (189 lb 12.8 oz) SpO2: 90 % Vitals Min/Max Last 24 Hours Vital Signs Min/Max (last 24 hours) Flowsheet Row Name Min Max Temp 98.1 F (36.7 C) 98.6 F (37 C) BP: Systolic 140 167 BP: Diastolic 67 87 Pulse 70 82 Resp 16 18 SpO2 90 % 95 % MAP (mm Hg) 110 mm Hg 110 mm Hg Intake and Output Last 24 Hours 03/02 0700 - 03/03 0659 In: - Out: 1755 Lines and Drains Patient Lines/Drains/Airways Status Active Lines Name: Placement date: Placement time: Site: Days: Peripheral IV 03/01/19 Hand Right;Top 03/01/19 0607 Hand 2 Michael-Fernandez Drain 03/01/19 Lower;Medial Back Drain #1 03/01/19 1022 Back 2 Incision 12/03/11 Inner Other (Comment) Incision 12/03/11 Other ( Comment) 5807 Incision 03/01/19 Lower;Mid Back Incision 03/01/19 0759 Back 2 Physical Exam General Appearance: Well nourished, well hydrated, lying in bed, appears to be in pain from sciatica. Lungs: No use of accessory muscles of respiration, CTA marky Heart: normal S1 S2, no pedal edema. Abdomen: soft, normal BS, non tender Neurological: alert and answering questions appropriately. Diagnostics and Labs Labs (Last day) 03/03/19 06 - 03/03/19606 CARDIAC MARKERS 03/03/19606 CARDIAC MARKERS BNP 0-100 (pg/mL) 144 03/03/19 0607 - 03/03/19 06 CBC 03/03/19606 CBC WBC 4.0-11.0 (K/uL) 10.4 RBC 4.40-5.80 (M/uL) 4.01 Hemoglobin 13.5-17.5 (g/dL) 12.6 Hematocrit 40.0-50.0 (%) 37.9 MCV 80.0-98.0 (fL) 94.5 MCH 25.5-34.0 (pg) 31.4 MCHC 31.5-36.5 (g/dL) 33.2 RDW-CV 11.5-15.5 (%) 13.1 RDW-SD 35.5-50.0 (fl) 45.4 Platelet Count 140-400 (K/uL) 184 MPV 8.5-12.0 (fL) 9.6 03/03/19606 - 03/03/19 06 CHEMISTRY 03/03/19 0603/03/19 0607 03/03/19606 CHEMISTRY Glucose 70-100 (mg/dL) 143 Sodium 135-145 (meq/L) 140 Potassium 3.5-5.3 (meq/L) 4.0 Chloride 99-110 (meq/L) 105 CO2 20-29 (meq/L) 28 Anion Gap with K 6-20 (meq/L) 11 BUN 6-22 (mg/dL) 12 Creatinine 0.80-1.30 (mg/dL) 0.89 BUN/Creatinine Ratio 10.0-25.0 13.5 Calcium 8.5-10.5 (mg/dL) 9.1 Corrected Calcium 8.5-10.5 (mg/dL) 9.3 Phosphorus 2.5-4.5 (mg/dL) 1.6 Magnesium 1.8-2.4 (mg/dL) 2.1 Bilirubin Total 0.2-1.2 (mg/dL) 1.0 Bilirubin Direct 0.0-0.4 (mg/dL) 0.4 Bilirubin Indirect 0.0-0.8 (mg/dL) 0.6 Alkaline Phosphatase 30-150 (U/L) 83 ALT - SGPT 0-55 (U/L) 19 AST - SGOT 0-35 (U/L) 28 Protein Total 6.0-8.2 (g/dL) 6.4 Albumin 3.5-5.0 (g/dL) 3.8 3.8 eGFR >=60 (mL/min/1.73m2) >90 eGFR Non- >=60 (mL/min/1.73m2) 84 03/03/19 0607 - 03/03/19 0607 OTHER 03/03/19 0607 OTHER Age (Years) 73 Ihsan Lopes PA-C - 03/03/2019 8:26 AM [facility] Neurosurgery Progress Note Karen Sharma is a 73yr old male who underwent L4-S1 TLIF on 03/01/2019. S: Up to bathroom with 1 assist this AM Left leg pain from knee to ankle Voiding ok O: Vital Signs: Temp: 98.1 F (36.7 C) | BP: 153/72 | Pulse: 72 | Resp: 16 | Pain Ratin Pain Ratin (out of 10) | Weight: 86.1 kg (189 lb 12.8 oz) | O2 Device: Room Air O2 Flow Rate (L/min): 2 l/min | SpO2: 94 % Physical Exam General:healthy, alert, no distress Neuro: alert, oriented, normal speech Incision well approximated, no erythema or drainage noted Drain intact, patent Extremities: Right: Iliopsoas 5/5, quadricep 5/5, hamstring 5/5, DF 5/5, PF 5/5 Left: Iliopsoas 5/5, quadricep 5/5, hamstring 5/5, DF 5/5, PF 5/5 Sensation intact in bilateral L4-S1 dermatomes A: 2 Days Post-Op Status Post: Procedure(s): ROBOTIC L4-S1 DECOMPRESSION & FUSION WITH NEURO MONITORING P: Diet as tolerated PT/OT following, encourage ambulation IM following for co-management Upright xrays today Keep drain today TLSO when up Heparin SQ for DVT prophylaxis Discharge in 1-2 days pending therapy recs This patient was discussed with Dr. Briseno and he agrees with the assessment and plan. Ihsan Ravi PA-C [facility], [place], [place] Rohan Beth MD - 03/02/2019 5:02 PM CST DAILY PROGRESS NOTE SUMMARY Mr. Karen Sharma is a 73-year-old gentleman with medical history significant for hypertension, coronary artery disease status post PCI, hypothyroidism, probable COPD, and history of tobacco use, who is admitted to the hospital for L4-S1 decompression and fusion. Internal medicine is consulted for medical management. ASSESSMENT & PLAN #. L4-S1 decompression with fusion. - Pain control, bowel regimen, and DVT prophylaxis per neurosurgery. - On scheduled Tylenol and Neurontin. On as-needed oxycodone and fentanyl. On laxatives. On SCDs. - We will check basic labs in a.m. #. Klve-estbaqf-pft episode this morning. Likely vasovagal/orthostatic hypotension. - We will check orthostatics. Should he come back positive, we will start him on IV fluids. - Hemoglobin 12.6. Renal function unremarkable. #. Hypertension. On Lopressor 50 mg b.i.d. with holding parameters. We will hold Imdur. #. Coronary artery disease, status post PCI about 4 years ago. Aspirin on hold. On statin. On beta gucci. Hold Imdur because of light-headedness with sitting up or standing. - Aspirin to be restarted per neurosurgery. #. Hypothyroidism. On levothyroxine. #. COPD. Not in exacerbation. On Incruse Ellipta. #. History of smoking. The patient reported that he quit smoking about 15 years ago. Up until then, he was smoking 4 packs per day. #. GI prophylaxis. On PPI. #. DVT prophylaxis. On SCDs. Disposition: per NSG. This note was created, at least in part, with the use of [employer] Voice Dictation System. Inadvertenttypographical errors, due to software recognition problems, may still exist. SUBJECTIVE/ROS This morning, the patient stood up and became light-headed and went unresponsive for a couple of minutes. This improved after he lay down. The rest of the day went well. Again, when he sat up in thechair this afternoon, he went light-headed and pale. At the time of my visit, he was lying in bed and appeared comfortable. No chest pain. No shortnessof breath. No abdomen pain. Taking good oral diet. Passing gas. He reports that he has off-and-on episodes of light-headedness at home. This has been ongoing for a long time. Medications [START ON 03/03/2019] levothyroxine tablet 88 mcg 88 mcg Oral daily oxyCODONE (OXY-IR) tablet 5-10 mg 5-10 mg Oral Every 4 hours prn 5 mg at 09 fentaNYL 100 mcg/2 mL preservative free injection solution 50 mcg 50 mcg IV Every 1 hour prn senna-docusate sodium (SENOKOT-S;PERICOLACE) tablet 1 tablet 1 tablet Oral 2 times a day 1 tablet at 03/02/19950 docusate sodium (COLACE) capsule 100 mg 100 mg Oral 2 times a day 100 mg at 03/02/19 09 polyethylene glycol (MIRALAX) packet 1 packet 1 packet Oral Daily 1 packet at 03/02/19 0952 [START ON 03/03/2019] lactulose oral solution (10 gm/15 mL) 30 mL 30 mL Oral Daily [START ON 03/04/2019] bisacodyl (DULCOLAX) suppository 10 mg 10 mg Rectal Daily ondansetron (ZOFRAN) injection solution 4 mg 4 mg IV Every 4 hours prn haloperidol lactate (HALDOL) injection solution 2.5 mg 2.5 mg IV Every 6 hours prn benzocaine-menthol (CEPACOL w/ BENZOCAINE) lozenge 1 lozenge 1 lozenge Mouth/Throat Every 4 hours prn acetaminophen (TYLENOL) tablet 650 mg 650 mg Oral Every 6 hours 650 mg at 03/02/19 1700 gabapentin (NEURONTIN) capsule 300 mg 300 mg Oral 3 times a day 300 mg at 03/02/19 1504 ceFAZolin (ANCEF) 2000 mg/20 mL sterile water IV syringe 2,000 mg IV Every 8 hours 2,000 mg at 03/02/19 1504 atorvaSTATin (LIPITOR) tablet 80 mg 80 mg Oral Every evening 80 mg at 03/01 metoprolol tartrate (LOPRESSOR) tablet 50 mg 50 mg Oral 2 times a day 50 mg at 03/02/19 0951 nitroglycerin (NITROSTAT) sublingual tablet 0.4 mg 0.4 mg Sublingual Every 5 minutes prn pantoprazole (PROTONIX) enteric coated tablet 40 mg 40 mg Oral daily 40 mg at 03/02/19 0710 umeclidinium (INCRUSE ELLIPTA) 62.5 mcg/puff inhaler 1 puff 1 puff Inhalation daily 1 puff at 03/02/19 1024 OBJECTIVE Current Vital Signs Temp: 97.9 F (36.6 C) BP: 109/57 Pulse: 70 O2 Device: NC - no humidity O2 Flow Rate (L/min): 2 l/min Resp: 18 Pain Ratin Pain Ratin (out of 10) Weight: 86.1 kg (189 lb 12.8 oz) SpO2: 97 % Vitals Min/Max Last 24 Hours Vital Signs Min/Max (last 24 hours) Flowsheet Row Name Min Max Temp 97.8 F (36.6 C) 100.3 F (37.9 C) BP: Systolic 99 130 BP: Diastolic 57 87 Pulse 69 83 Resp 16 18 SpO2 92 % 98 % O2 Flow Rate (L/min) 0.5 l/min 3 l/min MAP (mm Hg) 71 mm Hg 93 mm Hg Intake and Output Last 24 Hours 03/01 0700 - 03/02 0659 In: 1700 Out: 1335 Lines and Drains Patient Lines/Drains/Airways Status Active Lines Name: Placement date: Placement time: Site: Days: Peripheral IV 03/01/19 Hand Right;Top 03/01/19 0607 Hand 1 Michael-Fernandez Drain 03/01/19 Lower;Medial Back Drain #1 03/01/19 1022 Back 1 Incision 12/03/11 Inner Other (Comment) Incision 12/03/11 Other ( Comment) 2646 Incision 03/01/19 Lower;Mid Back Incision 03/01/19 0759 Back 1 Physical Exam General Appearance: Well nourished, well hydrated, lying in bed, does not appear to be in acute distress Lungs: No use of accessory muscles of respiration, CTA marky Heart: normal S1 S2, no pedal edema. Abdomen: soft, normal BS, non tender Neurological: alert, answering questions appropriately, and moving extremities grossly. Diagnostics and Labs Labs (Last day) 03/02/19 0751 - 03/02/19 0751 CBC 03/02/19 0751 CBC Hemoglobin 13.5-17.5 (g/dL) 12.6 03/02/19 1146 - 03/02/19 1146 CHEMISTRY 03/02/19 1146 CHEMISTRY Glucose 70-100 (mg/dL) 229 Sodium 135-145 (meq/L) 137 Potassium 3.5-5.3 (meq/L) 3.6 Chloride 99-110 (meq/L) 104 CO2 20-29 (meq/L) 25 Anion Gap with K 6-20 (meq/L) 12 BUN 6-22 (mg/dL) 14 Creatinine 0.80-1.30 (mg/dL) 1.05 BUN/Creatinine Ratio 10.0-25.0 13.3 Calcium 8.5-10.5 (mg/dL) 8.6 Corrected Calcium 8.5-10.5 (mg/dL) 8.9 Phosphorus 2.5-4.5 (mg/dL) 2.5 Albumin 3.5-5.0 (g/dL) 3.6 eGFR >=60 (mL/min/1.73m2) 84 eGFR Non- >=60 (mL/min/1.73m2) 69 03/02/19 1146 - 03/02/19 1146 OTHER 03/02/19 1146 OTHER Age (Years) 73 hsan Ravi PA-C - 03/02/2019 11:14 AM [facility] Neurosurgery Progress Note Karen Sharma is a 73yr old male who underwent L4-S1 TLIF on 03/01/2019. S: Resting in bed, right leg pain is improved. Having some new left leg pain Voiding ok O: Vital Signs: Temp: 98.3 F (36.8 C) | BP: 130/80 | Pulse: 83 | Resp: 16 | Pain Ratin Pain Ratin (out of 10) | Weight: 86.1 kg (189 lb 12.8 oz) | O2 Device: Room Air O2 Flow Rate (L/min): 0.5 l/min | SpO2: 98 % Physical Exam General:healthy, alert, no distress Neuro: alert, oriented, normal speech Incision well approximated, no erythema or drainage noted Drain intact, patent Extremities: Right: Iliopsoas 5/5, quadricep 5/5, hamstring 5/5, DF 5/5, PF 5/5 Left: Iliopsoas 5/5, quadricep 5/5, hamstring 5/5, DF 5/5, PF 5/5 Sensation intact in bilateral L4-S1 dermatomes A: 1 Day Post-Op Status Post: Procedure(s): ROBOTIC L4-S1 DECOMPRESSION & FUSION WITH NEURO MONITORING P: Diet as tolerated PT/OT following, encourage ambulation IM following for co-management Keep drain today TLSO when up SCDs for DVT prophylaxis This patient was discussed with Dr. Briseno and he agrees with the assessment and plan. Ihsan Ravi PA-C [facility] [place], [place] Jules Antony CPO - 03/01/2019 9:29 AM CSTPATIENT: Karen Sharma LOCATION: [facility], room # TBD Karen Sharma LSO was delivered to nurses station/ patients room. His LSO will now be available for him to wear when they are ready to get out of bed following surgery. He was measured, fit, and instructed on the use of the LSO prior to surgery. If Karen is in need of adjustments please page [facility] O&P Director Of Safety And Security at alpha pager #[phone]. During the pre-fitting and instructing Karen was instructed to contact [facility] after discharge with any questions or concerns with the brace. A care of sheet and contact information was provided with the orthosis. Jules Simon, ELAO Shagufta Delaney [facility] - 03/01/2019 6:45 AM CST 03/01/2019 06:46 - Patient was seen by pharmacy. HOME MEDICATIONS have been reconciled and updated tomatch the patient's home usage. Prior to Admission Medications Prescriptions Last Dose Informant Patient Reported? Taking? MULTIPLE VITAMIN PO 02/20/2019 Self Yes Yes Sig: Take 1 tablet by mouth 1 time per day acetaminophen (TYLENOL 8 HOUR) 650 mg CR tablet 02/20/2019 Self Yes Yes Sig: Take 1,300 mg by mouth every night at bedtime aspirin (ECOTRIN LOW STRENGTH) 81 MG enteric coated tablet 02/20/2019 Self Yes Yes Sig: Take 81 mg by mouth 1 time per day atorvaSTATin calcium (LIPITOR) 80 mg tablet 02/28/2019 at 1800 Self Yes Yes Sig: Take 80 mg by mouth 1 time a day in the evening docusate sodium (COLACE) 50 MG CAPS capsule 02/28/2019 at 1800 Self Yes Yes Sig: Take by mouth 2 times a day isosorbide mononitrate (IMDUR) 30 mg SR tablet (24 hr) 03/01/2019 at 0300 Self Yes Yes Sig: Take 30 mg by mouth 1 time per day levothyroxine (SYNTHROID) 88 mcg tablet 03/01/2019 at 0300 Self Yes Yes Sig: Take 88 mcg by mouth 1 time per day. metoprolol tartrate (LOPRESSOR) 100 mg tablet 03/01/2019 at 0300 Self Yes Yes Sig: Take 50 mg by mouth 2 times a day nitroglycerin (NITROSTAT) 0.4 mg sublingual tablet Past month at Unknown time Self Yes Yes Sig: Dissolve 0.4 mg under the tongue Every 5 minutes as needed for chest pain pantoprazole (PROTONIX) 40 mg enteric coated tablet 03/01/2019 at 0300 Self Yes Yes Sig: Take 40 mg by mouth 1 time per day tiotropium (SPIRIVA) 18 MCG aer cap 02/28/2019 at Unknown time Self Yes Yes Sig: Inhale 18 mcg orally 1 time per day Using the handihaler device,inhale contents of 1 capsule(18mcg) using 2 inhalations per capsule/day triamcinolone acetonide (KENALOG,ARISTOCORT) 0.1 % cream Past month at Unknown time Self Yes Yes Sig: Apply to affected area 3 times a day as needed for rash. Facility-Administered Medications: None Shagufta Sharma RPh documented in this encounter Plan of Treatment Date Type Specialty Care Team Description 04/25/2019 Ancillary Procedure Radiology 04/25/2019 Office Visit Neurosurgery Anabel Briseno MD [address] [place] [address] [phone] 04/25/2019 Appointment Physical Medicine and Michelle Galileo Kenyatta, Rehab PT [address] [place] [address] [phone] Name Type Priority Associated Diagnoses Order Schedule XRAY SPINE LUMBAR 2-3 Imaging Routine S/P lumbar fusion Expected: 2018 VIEWS (Approximate), Expires: 04/06/2020 documented as of this encounter Implants Implanted Type Area Bus Operator Device Shelf Model / Identifier Expiration Serial / Date Lot Spacer Elvte X-Torrie 28x7mm N [id number] Ea1 - S. Neurology N/A: [employer] [id number] / Implanted: Qty: 1 on 03/01/2019 by Anabel Briseno MD at LUMBAR . / [id number] Description:Implant verbally ordered and verified by Dr. Briseno and surgical staff Spacer Elvte X-Torrie 28x7mm N [id number] Ea1 - S. Neurology N/A: LUMBAR [employer] 02/16/2027 [id number] / Implanted: Qty: 1 on 03/01/2019 by Anabel Briseno MD at . / [id number] Description:Implant verbally ordered and verified by Dr. Briseno and surgical staff Screw Ma Voyager Ster 6.5x45mm N [id number] Ea1 - S. Neurology N/A: LUMBAR [employer] [id number] / Implanted: Qty: 6 on 03/01/2019 by Anabel Briseno MD at . / . Description:Implant verbally ordered and verified by Dr. Briseno and surgical staff Kahlil Voyager Cap Cmc 5.5x60mm N [id number] Ea1 - S. Neurology N/A: LUMBAR [employer] [id number] / Implanted: Qty: 2 on 03/01/2019 by Anabel Briseno MD at . / . Description:Implant verbally ordered and verified by Dr. Briseno and surgical staff Set Screw Soleravoyager5.5/6.0 N [id number] Ea1 - S. Neurology N/A: LUMBAR [employer] [id number] / Implanted: Qty: 6 on 03/01/2019 by Anabel Briseno MD at . / . Description:Implant verbally ordered and verified by Dr. Briseno and surgical staff Explanted Type Area Bus Operator Device Shelf Model / Identifier Expiration Serial / Date Lot Clover Henry Blnt N [id number] Ea1 - [id number] Ortho N/A: [employer] [id number] / Explanted: Qty: 1 on 03/01/2019 by Anabel Briseno MD at Other LUMBAR / Description:Implant verbally ordered and verified by Dr. Briseno and surgical staff documented as of this encounter Procedures Procedure Name Priority Date/Time Associated Diagnosis Comments LAB ONLY-COMPLETE Routine 03/07/2019 5:15 Results for this BLOOD COUNT WITH AM ECONOMIC HISTORIAN procedure are in DIFFERENTIAL the results section. MAGNESIUM Routine 03/07/2019 5:15 Results for this AM ECONOMIC HISTORIAN procedure are in the results section. BASIC METABOLIC Routine 03/07/2019 5:15 Results for this PANEL AM ECONOMIC HISTORIAN procedure are in the results section. LAB ONLY-COMPLETE Routine 03/07/2019 5:15 Results for this BLOOD COUNT WITH AM ECONOMIC HISTORIAN procedure are in DIFFERENTIAL the results section. XRAY SPINE LUMBAR Routine 03/03/2019 4:20 Results for this 2-3 VIEWS PM ECONOMIC HISTORIAN procedure are in the results section. COMPLETE BLOOD COUNT Routine 03/03/2019 6:07 Results for this WITHOUT DIFFERENTIAL AM ECONOMIC HISTORIAN procedure are in the results section. HEPATIC FUNCTION Routine 03/03/2019 6:07 Results for this PANEL AM ECONOMIC HISTORIAN procedure are in the results section. MAGNESIUM Routine 03/03/2019 6:07 Results for this AM ECONOMIC HISTORIAN procedure are in the results section. RENAL FUNCTION PANEL Routine 03/03/2019 6:07 Results for this AM ECONOMIC HISTORIAN procedure are in the results section. BRAIN NATRIURETIC Routine 03/03/2019 6:07 Results for this PEPTIDE AM ECONOMIC HISTORIAN procedure are in the results section. RENAL FUNCTION PANEL Routine 03/02/2019 11:46 Results for this AM ECONOMIC HISTORIAN procedure are in the results section. HEMOGLOBIN Routine 03/02/2019 7:51 Results for this AM ECONOMIC HISTORIAN procedure are in the results section. LAB ONLY-ABORH STAT 03/01/2019 1:11 Results for this PM ECONOMIC HISTORIAN procedure are in the results section. XRAY C-ARM Routine 03/01/2019 10:38 Results for this AM ECONOMIC HISTORIAN procedure are in the results section. FUSION LUMBAR SPINE 03/01/2019 6:36 Displacement of lumbar OPEN 2 LEVELS AM ECONOMIC HISTORIAN intervertebral disc without myelopathy Case Notes 11-6 neuromonitoring scheduled, [employer] Special Needs #1, 2 HRS TYPE AND SCREEN STAT 03/01/2019 5:36 AM ECONOMIC HISTORIAN documented in this encounter Results LAB ONLY-COMPLETE BLOOD COUNT WITH DIFFERENTIAL (03/07/2019 5:15 AM ECONOMIC HISTORIAN) WBC 8.2 4.0 - 11.0 K/uL [address] RBC 3.93 (L) 4.40 - 5.[address] M/uL Hemoglobin 12.2 (L) 13.5 - 17.[address] g/dL Hematocrit 36.6 (L) 40.0 - 50.0 % [address] MCV 93.1 80.0 - 98.[address] MCH 31.0 25.5 - 34.[address] MCHC 33.3 31.5 - 36.[address] g/dL RDW-CV 12.7 11.5 - 15.5 % [address] RDW-SD 43.5 35.5 - 50.[address] Platelet Count 268 140 - 400 K/uL [address] MPV 9.5 8.5 - 12.[address] Seg Neut Absolute 5.4 1.8 - 8.0 K/uL [address] Lymphocytes Absolute 1.5 0.8 - 4.1 K/uL [address] Monocytes Absolute 0.7 0.0 - 1.0 K/uL [address] Eosinophils Absolute 0.4 0.0 - 0.7 K/uL [address] Basophil Absolute 0.1 0.0 - 0.2 K/uL [address] Immature Granulocyte 0.04 0.00 - 0.[address] Absolute K/uL Neutrophils Abs. 5,400 /uL [address] (Segs and Bands) Neutrophils Percent 66.6 % [address] Lymphocytes Percent 18.8 % [address] Monocytes Percent 9.0 % [address] Immature Granulocyte 0.5 % [address] Percent Eosinophils Percent 4.4 % [address] Basophil Percent 0.7 % [address] Nucleated RBC 0 /[address] Specimen Blood Performing Organization Address [facility] Phone Number [address] [place] [phone] MAGNESIUM (03/07/2019 5:15 AM ECONOMIC HISTORIAN) Magnesium 2.1 1.8 - 2.4 mg/dL [address] Specimen Blood Performing Organization Address [facility] Phone Number [address] [place] [phone] BASIC METABOLIC PANEL (03/07/2019 5:15 AM ECONOMIC HISTORIAN) Glucose 135 (H) 70 - 100 mg/dL [address] BUN 13 6 - 22 mg/dL [address] Creatinine 0.86 0.80 - 1.[address] mg/dL BUN/Creatinine Ratio 15.1 10.0 - 25.[address] Sodium 138 135 - 145 meq/L [address] Potassium 4.9 3.5 - 5.3 meq/L [address] Chloride 102 99 - 110 meq/L [address] CO2 28 20 - 29 meq/L [address] Anion Gap with K 13 6 - 20 meq/L [address] Calcium 9.5 8.5 - 10.5 mg/dL [address] Age [address] eGFR Non- 87 >=[address] Macanese mL/min/1.73m2 eGFR >90 >=[address] mL/min/1.73m2 Specimen Blood Performing Organization Address [facility] Phone Number [address] [place] [phone] XRAY SPINE LUMBAR 2 OR 3V - AP AND LAT UPRIGHT (03/03/2019 4:20 PM ECONOMIC HISTORIAN) Specimen Narrative Performed At [facility] Patient Name: KAREN SHARMA Date of :1945 Procedure: XRAY SPINE LUMBAR 2-3 VIEWS Date of Service: 03/03/2019 EXAM: XRAY SPINE LUMBAR 2-3 VIEWS INDICATION: s/p lumbar fusion COMPARISON: 12/15/2018 TECHNIQUE: 2 view lumbar spine FINDING/IMPRESSION: Interval postoperative changes from dorsolateral and interbody fusion spanning L4-S1. Hardware appears intact. Stable degenerative changes. Laminectomy defects. Finalized by: Chandler Matute MD on 03/03/2019 5:13 PM ECONOMIC HISTORIAN Patient/Procedure Information: MRN/JULY: [id number] Order Number: [id number] Accession Number: [id number] Ordering Provider: TANNER BRISENO Authorizing Provider: TANNER BRISENO Procedure Note Interface, Radiantres - 03/03/2019 5:15 PM ECONOMIC HISTORIAN Patient Name: KAREN SHARMA Date of : 1945 Procedure: XRAY SPINE LUMBAR 2-3 VIEWS Date of Service: 03/03/2019 EXAM: XRAY SPINE LUMBAR 2-3 VIEWS INDICATION: s/p lumbar fusion COMPARISON: 12/15/2018 TECHNIQUE: 2 view lumbar spine FINDING/IMPRESSION: Interval postoperative changes from dorsolateral and interbody fusion spanning L4-S1. Hardware appears intact. Stable degenerative changes. Laminectomy defects. Finalized by: Chandler Matute MD on 03/03/2019 5:13 PM ECONOMIC HISTORIAN Patient/Procedure Information: MRN/JULY: [id number] Order Number: [id number] Accession Number: [id number] Ordering Provider: TANNER BRISENO Authorizing Provider: TANNER BRISENO Performing Organization Address [facility]/Zipcode Phone Number [id number] BRAIN NATRIURETIC PEPTIDE (03/03/2019 6:07 AM ECONOMIC HISTORIAN) BNP 144 (H) 0 - 100 pg/mL [address] Specimen Blood Performing Organization Address [facility] Phone Number [address] [place] [address] HEPATIC FUNCTION PANEL (03/03/2019 6:07 AM ECONOMIC HISTORIAN) Alkaline Phosphatase 83 30 - 150 U/L [address] AST - SGOT 28 0 - 35 U/L [address] ALT - SGPT 19 0 - 55 U/L [address] Bilirubin Total 1.0 0.2 - 1.2 mg/dL [address] Bilirubin Indirect 0.6 0.0 - 0.8 mg/dL [address] Bilirubin Direct 0.4 0.0 - 0.4 mg/dL [address] Albumin 3.8 3.5 - 5.0 g/dL [address] Protein Total 6.4 6.0 - 8.2 g/dL [address] Specimen Blood Performing Organization Address [facility] Phone Number [address] [place] [phone] MAGNESIUM (03/03/2019 6:07 AM ECONOMIC HISTORIAN) Magnesium 2.1 1.8 - 2.4 mg/dL [address] Specimen Blood Performing Organization Address [facility] Phone Number [address] [phone] RENAL FUNCTION PANEL (03/03/2019 6:07 AM ECONOMIC HISTORIAN) Glucose 143 (H) 70 - 100 mg/dL [address] BUN 12 6 - 22 mg/dL [address] Creatinine 0.89 0.80 - 1.[address] mg/dL BUN/Creatinine Ratio 13.5 10.0 - 25.[address] Sodium 140 135 - 145 meq/L [address] Potassium 4.0 3.5 - 5.3 meq/L [address] Chloride 105 99 - 110 meq/L [address] CO2 28 20 - 29 meq/L [address] Anion Gap with K 11 6 - 20 meq/L [address] Calcium 9.1 8.5 - 10.5 mg/dL [address] Phosphorus 1.6 (L) 2.5 - 4.5 mg/dL [address] Albumin 3.8 3.5 - 5.0 g/dL [address] Corrected Calcium 9.3 8.5 - 10.5 mg/dL [address] Age [address] eGFR Non- 84 >=[address] Macanese mL/min/1.73m2 eGFR >90 >=[address] mL/min/1.73m2 Specimen Blood Performing Organization Address [facility] Phone Number [address] [place] [phone] COMPLETE BLOOD COUNT WITHOUT DIFFERENTIAL (03/03/2019 6:07 AM ECONOMIC HISTORIAN) WBC 10.4 4.0 - 11.0 K/uL [address] RBC 4.01 (L) 4.40 - 5.80 M/uL [address] Hemoglobin 12.6 (L) 13.5 - 17.5 g/dL [address] Hematocrit 37.9 (L) 40.0 - 50.0 % [address] MCV 94.5 80.0 - 98.[address] MCH 31.4 25.5 - 34.[address] MCHC 33.2 31.5 - 36.5 g/dL [address] RDW-CV 13.1 11.5 - 15.5 % [address] RDW-SD 45.4 35.5 - 50.[address] Platelet Count 184 140 - 400 K/uL [address] MPV 9.6 8.5 - 12.[address] Specimen Blood Performing Organization Address [facility] Phone Number [address] [place] [phone] RENAL FUNCTION PANEL (03/02/2019 11:46 AM ECONOMIC HISTORIAN) Glucose 229 (H) 70 - 100 mg/dL [address] BUN 14 6 - 22 mg/dL [address] Creatinine 1.05 0.80 - 1.[address] mg/dL BUN/Creatinine Ratio 13.3 10.0 - 25.[address] Sodium 137 135 - 145 meq/L [address] Potassium 3.6 3.5 - 5.3 meq/L [facility] Chloride 104 99 - 110 meq/L [address] CO2 25 20 - 29 meq/L [address] Anion Gap with K 12 6 - 20 meq/L [address] Calcium 8.6 8.5 - 10.5 mg/dL [address] Phosphorus 2.5 2.5 - 4.5 mg/dL [address] Albumin 3.6 3.5 - 5.0 g/dL [address] Corrected Calcium 8.9 8.5 - 10.5 mg/dL [address] Age [address] eGFR Non- 69 >=[address] Macanese mL/min/1.73m2 eGFR 84 >=[address] mL/min/1.73m2 Specimen Blood Performing Organization Address [facility] Phone Number [address] [place] [address], [place] [address] HEMOGLOBIN (03/02/2019 7:51 AM ECONOMIC HISTORIAN) Hemoglobin 12.6 (L) 13.5 - 17.5 g/dL [address] Specimen Blood Performing Organization Address [facility] Phone Number [address] [place] [phone] LAB ONLY-ABORH (03/01/2019 1:11 PM ECONOMIC HISTORIAN) ABO Type A [address] BLOOD BANK Rh Type Positive [address] BLOOD BANK Specimen Blood Performing Organization Address [facility] Phone Number [address] BLOOD BANK [address] [place] [phone] XRAY C-ARM greater than one hour (03/01/2019 10:38 AM ECONOMIC HISTORIAN) Specimen Narrative Performed At [facility] Patient Name: KAREN SHARMA Date of :1945 Procedure: XRAY C-ARM Date of Service: 03/01/2019 EXAM: XRAY C-ARM INDICATION:Displacement of lumbar intervertebral disc without myelopathy HISTORY: Lumbar spine surgery IMPRESSION: Fluoroscopic service was provided to assist with lumbar spine surgery Finalized by: Jun Jones MD on 03/01/2019 10:54 AM ECONOMIC HISTORIAN Patient/Procedure Information: MRN/JULY: [id number] Order Number: [id number] Accession Number: [id number] Ordering Provider: TANNER BRISENO Authorizing Provider: TANNER BRISENO Procedure Note Interface, Radiantres - 03/01/2019 10:56 AM ECONOMIC HISTORIAN Patient Name: KAREN SHARMA Date of : 1945 Procedure: XRAY C-ARM Date of Service: 03/01/2019 EXAM: XRAY C-ARM INDICATION:Displacement of lumbar intervertebral disc without myelopathy HISTORY: Lumbar spine surgery IMPRESSION: Fluoroscopic service was provided to assist with lumbar spine surgery Finalized by: Jun Jones MD on 03/01/2019 10:54 AM ECONOMIC HISTORIAN Patient/Procedure Information: MRN/JULY: [id number] Order Number: [id number] Accession Number: [id number] Ordering Provider: TANNER BRISENO Authorizing Provider: TANNER BRISENO Performing Organization Address [facility] Phone Number [id number] TYPE AND SCREEN (03/01/2019 5:36 AM ECONOMIC HISTORIAN) ABO Type A [address] BLOOD BANK Rh Type Positive [address] BLOOD BANK Antibody Screen Negative [address] Comment: BLOOD BANK Allogenic Red Cells Available [facility] 03/01/19 Expiration Date 03/04/2019 23:[address] BLOOD BANK Specimen Blood Performing Organization Address [facility] Phone Number [address] BLOOD BANK [address] [place] [phone] documented in this encounter Visit Diagnoses Diagnosis S/P lumbar fusion - Primary Arthrodesis status Essential hypertension Unspecified essential hypertension documented in this encounter Discharge Diagnoses Not on filedocumented in this encounter Administered Medications Medication Order MAR Action Action Date Dose Rate Site acetaminophen (TYLENOL) tablet Given 03/07/2019 11:27 AM ECONOMIC HISTORIAN 650 mg 650 mg 650 mg, Oral, Every six hours, First dose on Wed03/01/19 at 1330, Until Discontinued, Post - Op, Alternate with tramadol (ULTRAM), IF ORDERED; Total dose of acetaminophen from all acetaminophen containing products should not exceed 4 grams (4000 mg) per day., Given 03/07/2019 5:37 AM ECONOMIC HISTORIAN 650 mg Given 03/06/2019 11:53 PM ECONOMIC HISTORIAN 650 mg aspirin enteric coated tablet 81 mg Given 03/07/2019 8:27 AM ECONOMIC HISTORIAN 81 mg 81 mg, Oral, DAILY, First dose on Wed03/06/19 at 0900, Until Discontinued, Tablet should be swallowed whole and not be divided, crushed or chewed., Given 03/06/2019 8:19 AM ECONOMIC HISTORIAN 81 mg atorvaSTATin (LIPITOR) tablet 80 mg Given 03/06/2019 8:00 PM ECONOMIC HISTORIAN 80 mg 80 mg, Oral, Every evening, First dose on Wed03/01/19 at 2100, Until Discontinued Given 03/05/2019 8:47 PM ECONOMIC HISTORIAN 80 mg Given 03/04/2019 8:31 PM ECONOMIC HISTORIAN 80 mg baclofen (LIORESAL) tablet 10 mg Given 03/07/2019 8:27 AM ECONOMIC HISTORIAN 10 mg 10 mg, Oral, Two times a day, First dose on Wed03/06/19 at 2100, Until Discontinued Given 03/06/2019 8:00 PM ECONOMIC HISTORIAN 10 mg benzocaine-menthol (CEPACOL w/ BENZOCAINE) lozenge 1 lozenge 1 lozenge, Mouth/Throat, Every four hours prn, Starting Wed03/01/19 at 1247, Until Discontinued, sore throat, other (Specify), throat irritation, Post - Op, Exception: Patients with dysphagia, radiation mucositis/esophagitis or without a gag reflex., bisacodyl (DULCOLAX) suppository 10 mg 10 mg, Rectal, Daily, First dose on Wed03/04/19 at 0900, Until Discontinued, Post - Op, Hold if has had an adequate BM in last 24 hours, docusate sodium (COLACE) capsule 100 mg Given 03/06/2019 7:59 PM ECONOMIC HISTORIAN 100 mg 100 mg, Oral, Two times a day, First dose on Wed03/01/19 at 2100, Until Discontinued, Post - Op, Hold for loose stools, Given 03/06/2019 8:19 AM ECONOMIC HISTORIAN 100 mg Given 03/05/2019 8:47 PM ECONOMIC HISTORIAN 100 mg fentaNYL 100 mcg/2 mL preservative free injection solution 50 mcg 50 mcg, IV, Every one hour prn, Starting Wed03/01/19 at 1247, Until Discontinued, severe pain, if pain unrelieved by oxycodone, 2 mL, Post - Op haloperidol lactate (HALDOL) injection solution 2.5 mg 2.5 mg, IV, Every six hours prn, Starting Wed03/01/19 at 1247, Until Discontinued, other (Specify), nausea/vomiting, 1 mL, Post - Op, Use SECOND for nausea/ vomiting. If ineffective and ondansetron used, call physician for alternative Do not further dilute with 0.9% sodium chloride. If preference is to further dilute for IV administration: first draw up patient-specific dose, then dilute to 10ml with dextrose 5% water. Ok to flush with 0.9% Sodium Chloride., heparin (porcine) injection solution Given 03/07/2019 8:31 AM ECONOMIC HISTORIAN 5,000 Units 5,000 Units 5,000 Units, Subcutaneous, Every twelve hours, First dose on Wed03/03/19 at 0900, Until Discontinued, 1 mL Given 03/06/2019 8:00 PM ECONOMIC HISTORIAN 5,000 Units Given 03/06/2019 8:20 AM ECONOMIC HISTORIAN 5,000 Units hydrOXYzine pamoate (VISTARIL) capsule 50 mg Given 03/07/2019 8:27 AM ECONOMIC HISTORIAN 50 mg 50 mg, Oral, Three times a day, First dose on Wed03/06/19 at 1500, Until Discontinued Given 03/06/2019 8:00 PM ECONOMIC HISTORIAN 50 mg Given 03/06/2019 2:00 PM ECONOMIC HISTORIAN 50 mg isosorbide mononitrate (IMDUR) SR tablet (24 Given 03/07/2019 8:28 AM ECONOMIC HISTORIAN 30 mg hr) 30 mg 30 mg, Oral, DAILY, First dose on Wed03/04/19 at 0900, Until Discontinued, Tablet may be broken in half, but should not be crushed or chewed., Given 03/06/2019 8:19 AM ECONOMIC HISTORIAN 30 mg Given 03/05/2019 8:32 AM ECONOMIC HISTORIAN 30 mg lactulose oral solution (10 gm/15 mL) 30 mL Given 03/04/2019 9:43 AM ECONOMIC HISTORIAN 30 mL 30 mL, Oral, Daily, First dose on Wed03/03/19 at 0900, Until Discontinued, 30 mL, Post - Op, Hold if has had an adequate BM in last 24 hours, levothyroxine tablet 88 mcg Given 03/07/2019 8:27 AM ECONOMIC HISTORIAN 88 mcg 88 mcg, Oral, DAILY, First dose on Wed03/03/19 at 0900, Until Discontinued Given 03/06/2019 8:19 AM ECONOMIC HISTORIAN 88 mcg Given 03/05/2019 8:31 AM ECONOMIC HISTORIAN 88 mcg melatonin tablet 6 mg Given 03/06/2019 7:59 PM ECONOMIC HISTORIAN 6 mg 6 mg, Oral, Bedtime, First dose on Wed03/04/19 at 0250, Until Discontinued Given 03/05/2019 8:47 PM ECONOMIC HISTORIAN 6 mg Given 03/04/2019 8:25 PM ECONOMIC HISTORIAN 6 mg metoprolol tartrate (LOPRESSOR) tablet 75 mg Given 03/07/2019 8:44 AM ECONOMIC HISTORIAN 75 mg 75 mg, Oral, Two times a day, First dose on Wed03/07/19 at 0900, Until Discontinued, Hold for SBP less than 110 or HR less than 60., ondansetron (ZOFRAN) injection solution 4 mg 4 mg, IV, Every four hours prn, Starting Wed03/01/19 at 1247, Until Discontinued, nausea, vomiting, 2 mL, Post - Op, Use FIRST. If ineffective after 15 minutes use haloperidol. If preference is to further dilute for IV administration: First draw up patient-specific dose, then dilute to 10 mL with 0.9% sodium chloride., oxyCODONE (OXY-IR) tablet 5-10 mg Given 03/07/2019 8:28 AM ECONOMIC HISTORIAN 5 mg 5-10 mg, Oral, Every four hours prn, Starting Wed03/01/19 at 1247, Until Discontinued, moderate pain, severe pain, Post - Op, For patients with MODERATE pain, pain rating of 4-6, give Oxycodone 5 mg every 4 hours PRN. For patients with SEVERE pain, pain rating of 7-10, give Oxycodone 10 mg every 4 hours PRN., Given 03/06/2019 4:55 PM ECONOMIC HISTORIAN 5 mg Given 03/06/2019 12:47 PM ECONOMIC HISTORIAN 5 mg pantoprazole (PROTONIX) enteric coated tablet Given 03/07/2019 6:35 AM ECONOMIC HISTORIAN 40 mg 40 mg 40 mg, Oral, DAILY, First dose on Jolynn 03/02/19 at 0700, Until Discontinued, Tablet should be swallowed whole and not be divided, crushed or chewed., Given 03/06/2019 5:45 AM ECONOMIC HISTORIAN 40 mg Given 03/05/2019 6:05 AM ECONOMIC HISTORIAN 40 mg polyethylene glycol (MIRALAX) packet 1 Given 03/06/2019 8:20 AM ECONOMIC HISTORIAN 1 packet packet 1 packet, Oral, Daily, First dose on Wed03/02/19 at 0900, Until Discontinued, Post - Op, Hold for loose stools., Given 03/04/2019 9:43 AM ECONOMIC HISTORIAN 1 packet Given 03/02/2019 9:52 AM ECONOMIC HISTORIAN 1 packet potassium & sodium phosphates (PHOS-NaK) Given 03/07/2019 8:29 AM ECONOMIC HISTORIAN 1 packet 280-160-250 MG packet 1 packet 1 packet, Oral, Three times a day, First dose on Wed03/03/19 at 1500, Until Discontinued, Contents of packet should be dissolved in 75 ml water. Stir well and take promptly., Given 03/06/2019 7:59 PM ECONOMIC HISTORIAN 1 packet Given 03/06/2019 1:58 PM ECONOMIC HISTORIAN 1 packet senna-docusate sodium Given 03/07/2019 8:27 AM ECONOMIC HISTORIAN 1 tablet (SENOKOT-S;PERICOLACE) tablet 1 tablet 1 tablet, Oral, Two times a day, First dose on Wed03/01/19 at 2100, Until Discontinued, Post - Op Given 03/06/2019 7:59 PM ECONOMIC HISTORIAN 1 tablet Given 03/06/2019 8:20 AM ECONOMIC HISTORIAN 1 tablet umeclidinium (INCRUSE ELLIPTA) 62.5 mcg/puff Given 03/07/2019 9:56 AM ECONOMIC HISTORIAN 1 puff inhaler 1 puff 1 puff, Inhalation, DAILY, First dose on Wed03/02/19 at 0900, Until Discontinued, 62.5 mcg=1 inhalation, Therapeutic sub per policy for Tiotropium (Spiriva), Given 03/05/2019 10:06 AM ECONOMIC HISTORIAN 1 puff Given 03/04/2019 8:33 AM ECONOMIC HISTORIAN 1 puff Medication Order MAR Action Action Date Dose Rate Site acetaminophen (TYLENOL) tablet Given 03/01/2019 6:42 AM ECONOMIC HISTORIAN 1,000 mg 1,000 mg 1,000 mg, Oral, Pre-op, 1 dose, Wed03/01/19 at 0735, Pre - Op, Total dose of acetaminophen from all acetaminophen containing products should not exceed 4 grams (4000 mg) per day., baclofen (LIORESAL) tablet 10 mg Given 03/06/2019 9:50 AM ECONOMIC HISTORIAN 10 mg 10 mg, Oral, Three times a day, First dose on Wed03/06/19 at 0945, Until Discontinued ceFAZolin (ANCEF) 2000 mg/20 mL sterile Given 03/03/2019 11:56 PM ECONOMIC HISTORIAN 2,000 mg water IV syringe 2,000 mg, IV, Every eight hours, First dose on Wed03/01/19 at 1530, Until Discontinued, 20 mL, Post - Op, Discontinue antibiotic when drain removed. Administer as IV push over 4 minutes., Given 03/03/2019 3:47 PM ECONOMIC HISTORIAN 2,000 mg Given 03/03/2019 8:40 AM ECONOMIC HISTORIAN 2,000 mg diazePAM (VALIUM) tablet 5 mg Given 03/01/2019 6:43 AM ECONOMIC HISTORIAN 5 mg 5 mg, Oral, Now, 1 dose, Wed03/01/19 at 0635 fentaNYL 100 mcg/2 mL preservative free Given 03/01/2019 11:47 AM ECONOMIC HISTORIAN 50 mcg injection solution 50 mcg 50 mcg, IV, Every five minutes prn, 6 doses, Starting Wed03/01/19 at 1058, Until Wed03/01/19 at 1243, moderate pain, severe pain, 2 mL, PACU, For pain scale 4 to 6 or pain not relieved by medications for pain Scale 1 - 3 or for pain scale 7 or greater or pain not relieved by medications for pain scale 4 to 6 Max 300 mcg total accumulated dose. Use only anesthesia's orders for moderate/severe pain while in PACU or recovery care, Given 03/01/2019 11:20 AM ECONOMIC HISTORIAN 50 mcg Given 03/01/2019 11:11 AM ECONOMIC HISTORIAN 50 mcg gabapentin (NEURONTIN) capsule 300 mg Given 03/06/2019 8:19 AM ECONOMIC HISTORIAN 300 mg 300 mg, Oral, Three times a day, 15 doses, First dose on Wed03/01/19 at 2100, Last dose on Wed03/06/19 at 1500, Post - Op Given 03/05/2019 8:47 PM ECONOMIC HISTORIAN 300 mg Given 03/05/2019 4:13 PM ECONOMIC HISTORIAN 300 mg gabapentin (NEURONTIN) capsule 900 mg Given 03/06/2019 2:00 PM ECONOMIC HISTORIAN 900 mg 900 mg, Oral, Three times a day, 1 dose, First dose on Wed03/06/19 at 1500, Post - Op hydrOXYzine pamoate (VISTARIL) capsule 25 mg Given 03/01/2019 6:43 AM ECONOMIC HISTORIAN 25 mg 25 mg, Oral, Now, 1 dose, Wed03/01/19 at 0635 isosorbide mononitrate (IMDUR) SR tablet (24 Given 03/02/2019 9:51 AM ECONOMIC HISTORIAN 30 mg hr) 30 mg 30 mg, Oral, DAILY, First dose on Jolynn 03/02/19 at 0900, Until Discontinued, Tablet may be broken in half, but should not be crushed or chewed., lactated ringers IV solution New Bag 03/01/2019 8:38 AM ECONOMIC HISTORIAN IV, at 25 mL/hr, Continuous, Starting Wed03/01/19 at 0610, Until Wed03/01/19 at 1106, 1,000 mL, Pre - Op New Bag 03/01/2019 6:42 AM ECONOMIC HISTORIAN 25 mL/hr lactated ringers IV solution Already Infusing 03/01/2019 11:15 AM ECONOMIC HISTORIAN 125 mL/hr IV, at 125 mL/hr, Continuous, Starting Wed03/01/19 at 1100, Until Wed03/01/19 at 1243, 1,000 mL, PACU, TKO current fluids if patient is going to Day Unit / ARU and tolerating PO fluids without nausea., metoprolol tartrate (LOPRESSOR) tablet 50 mg Given 03/06/2019 8:00 PM [employer]ORIAN 50 mg 50 mg, Oral, Two times a day, First dose on Wed03/01/19 at 2100, Until Discontinued, Hold for SBP less than 110 or HR less than 60., Given 03/06/2019 8:20 AM ECONOM[employer] HISTORIAN 50 mg Given 03/05/2019 8:47 PM [employer] HISTORIAN 50 mg oxyCODONE (OXY-IR) tablet 5 mg Given 03/07/2019 11:27 AM ECONOM[employer] HISTORIAN 5 mg 5 mg, Oral, One time prn, 1 dose, Starting Wed03/07/19 at 0904, Until Wed03/07/19 at 1127, other (Specify), pain prophylaxis, May give within 1 hour of leaving hospital (pain prophylaxis), sodium chloride 0.9% (bolus) IV Given 03/02/2019 11:51 AM E[employer] HISTORIAN 500 mL 999 mL /hr solution 500 mL 500 mL, IV, at 999 mL/hr, Bolus, 1 dose, Jolynn 03/02/19 at 1230, 500 mL traMADol (ULTRAM) tablet 50 mg Given 03/01/2019 6:43 AM ECONOM[employer] HISTORIAN 50 mg 50 mg, Oral, Pre-op, 1 dose, Wed03/01/19 at 0735, Pre - Op, Recommended maximum daily dose of crfiphjo=527 mg. Recommended maximum daily dose in patients 75 years or ggoiv=656 mg., traMADol (ULTRAM) tablet 50 mg Given 03/05/2019 8:47 PM E[employer] HISTORIAN 50 mg 50 mg, Oral, One time, 1 dose, 03/05/19 at 5, Recommended maximum daily dose of jlnlsbcg=089 mg. Recommended maximum daily dose in patients 75 years or anxqm=708 mg., documented in this encounter
[2019-03-07] MEDS: hydrOXYzine Pamoate 25 MG Cap PO SCH (17:28)
[2019-03-07] MEDS: traMADol 50 MG Tab PO SCH ×2 (17:29→23:07)
[2019-03-07] MEDS: atorvaSTATin 40 MG Tab PO SCH (17:29)
[2019-03-07] MEDS: Acetaminophen 500 MG Tab PO SCH (17:30)
[2019-03-07] MEDS: Melatonin 3 MG Tab PO SCH (19:55)
[2019-03-07] MEDS: Metoprolol Tartrate 25 MG Tab PO SCH (19:55)
[2019-03-08] MEDS: traMADol 50 MG Tab PO SCH ×4 (05:45→23:13)
[2019-03-08] MEDS: Polyethylene Glycol 3350 Powder 17 GM Packet PO SCH ×2 (08:22→08:29)
[2019-03-08] MEDS: Metoprolol Tartrate 25 MG Tab PO SCH ×2 (08:22→19:45)
[2019-03-08] MEDS: Levothyroxine 88 MCG Tab PO SCH (08:23)
[2019-03-08] MEDS: Acetaminophen 500 MG Tab PO SCH ×3 (08:24→17:16)
[2019-03-08] MEDS: hydrOXYzine Pamoate 25 MG Cap PO SCH ×3 (08:25→17:16)
[2019-03-08] MEDS: Pantoprazole 40 MG Tab.CR PO SCH (08:26)
[2019-03-08] MEDS: Aspirin 81 MG Tab.EC PO SCH (08:26)
[2019-03-08] MEDS: Isosorbide Mononitrate 30 MG Tab.ER PO SCH (08:26)
[2019-03-08] MEDS: Tiotropium Inhaler 18 MCG Inhalation Powder Cap Kit of 5 INH SCH (08:30)
[2019-03-08] MEDS: Baclofen 10 MG Tab PO SCH (11:44)
[2019-03-08] MEDS: atorvaSTATin 40 MG Tab PO SCH (17:14)
[2019-03-08] MEDS: Melatonin 3 MG Tab PO SCH (19:45)
[2019-03-09] MEDS: traMADol 50 MG Tab PO SCH ×4 (05:00→23:05)
[2019-03-09] MEDS: Isosorbide Mononitrate 30 MG Tab.ER PO SCH (07:42)
[2019-03-09] MEDS: Metoprolol Tartrate 25 MG Tab PO SCH ×2 (07:42→19:30)
[2019-03-09] MEDS: Aspirin 81 MG Tab.EC PO SCH (07:42)
[2019-03-09] MEDS: Pantoprazole 40 MG Tab.CR PO SCH (07:43)
[2019-03-09] MEDS: Polyethylene Glycol 3350 Powder 17 GM Packet PO SCH (07:43)
[2019-03-09] MEDS: Levothyroxine 88 MCG Tab PO SCH (07:44)
[2019-03-09] MEDS: Tiotropium Inhaler 18 MCG Inhalation Powder Cap Kit of 5 INH SCH (07:44)
[2019-03-09] MEDS: Acetaminophen 500 MG Tab PO SCH ×4 (07:45→19:56)
[2019-03-09] MEDS: hydrOXYzine Pamoate 25 MG Cap PO SCH ×4 (07:46→19:56)
[2019-03-09] MEDS: Baclofen 10 MG Tab PO SCH (11:30)
[2019-03-09] MEDS: atorvaSTATin 40 MG Tab PO SCH (17:46)
[2019-03-09] MEDS: Melatonin 3 MG Tab PO SCH (19:29)
[2019-03-10] MEDS: traMADol 50 MG Tab PO SCH ×4 (05:02→23:08)
[2019-03-10] MEDS: Aspirin 81 MG Tab.EC PO SCH (07:45)
[2019-03-10] MEDS: Metoprolol Tartrate 25 MG Tab PO SCH ×3 (07:47→20:08)
[2019-03-10] MEDS: Levothyroxine 88 MCG Tab PO SCH (07:49)
[2019-03-10] MEDS: Acetaminophen 500 MG Tab PO SCH ×3 (07:50→19:52)
[2019-03-10] MEDS: Isosorbide Mononitrate 30 MG Tab.ER PO SCH (07:51)
[2019-03-10] MEDS: hydrOXYzine Pamoate 25 MG Cap PO SCH ×3 (07:52→19:51)
[2019-03-10] MEDS: Pantoprazole 40 MG Tab.CR PO SCH (07:53)
[2019-03-10] MEDS: Polyethylene Glycol 3350 Powder 17 GM Packet PO SCH (07:53)
[2019-03-10] MEDS: Tiotropium Inhaler 18 MCG Inhalation Powder Cap Kit of 5 INH SCH (07:53)
[2019-03-10] MEDS: Lidocaine 4% 1 each Patch TOP SCH (11:11)
[2019-03-10] MEDS: Baclofen 10 MG Tab PO SCH (11:50)
[2019-03-10] MEDS: atorvaSTATin 40 MG Tab PO SCH (17:16)
[2019-03-10] MEDS: Melatonin 3 MG Tab PO SCH (19:53)
[2019-03-11] MEDS: traMADol 50 MG Tab PO SCH ×4 (05:42→23:31)
[2019-03-11] MEDS: Pantoprazole 40 MG Tab.CR PO SCH (07:19)
[2019-03-11] MEDS: Levothyroxine 88 MCG Tab PO SCH (07:19)
[2019-03-11] MEDS: Lidocaine 4% 1 each Patch TOP SCH (07:19)
[2019-03-11] MEDS: Isosorbide Mononitrate 30 MG Tab.ER PO SCH (07:20)
[2019-03-11] MEDS: hydrOXYzine Pamoate 25 MG Cap PO SCH ×3 (07:20→19:47)
[2019-03-11] MEDS: Aspirin 81 MG Tab.EC PO SCH (07:20)
[2019-03-11] MEDS: Acetaminophen 500 MG Tab PO SCH ×3 (07:21→19:47)
[2019-03-11] MEDS: Polyethylene Glycol 3350 Powder 17 GM Packet PO SCH (07:21)
[2019-03-11] MEDS: Metoprolol Tartrate 25 MG Tab PO SCH ×2 (07:22→19:48)
[2019-03-11] MEDS: Tiotropium Inhaler 18 MCG Inhalation Powder Cap Kit of 5 INH SCH (07:24)
[2019-03-11] MEDS: Baclofen 10 MG Tab PO SCH (13:48)
[2019-03-11] MEDS: atorvaSTATin 40 MG Tab PO SCH (17:58)
[2019-03-11] MEDS: Melatonin 3 MG Tab PO SCH (19:47)
[2019-03-11] MEDS: Temazepam 15 MG Cap PO PRN (23:31)
[2019-03-12] MEDS: traMADol 50 MG Tab PO SCH ×4 (05:44→23:16)
[2019-03-12] MEDS: hydrOXYzine Pamoate 25 MG Cap PO SCH ×3 (07:39→19:41)
[2019-03-12] MEDS: Levothyroxine 88 MCG Tab PO SCH (07:39)
[2019-03-12] MEDS: Polyethylene Glycol 3350 Powder 17 GM Packet PO SCH (07:39)
[2019-03-12] MEDS: Aspirin 81 MG Tab.EC PO SCH (07:39)
[2019-03-12] MEDS: Isosorbide Mononitrate 30 MG Tab.ER PO SCH (07:40)
[2019-03-12] MEDS: Acetaminophen 500 MG Tab PO SCH ×3 (07:40→19:42)
[2019-03-12] MEDS: Metoprolol Tartrate 25 MG Tab PO SCH ×2 (07:41→19:41)
[2019-03-12] MEDS: Tiotropium Inhaler 18 MCG Inhalation Powder Cap Kit of 5 INH SCH (07:42)
[2019-03-12] MEDS: Lidocaine 4% 1 each Patch TOP SCH (07:42)
[2019-03-12] MEDS: Pantoprazole 40 MG Tab.CR PO SCH (07:42)
[2019-03-12] MEDS: Baclofen 10 MG Tab PO SCH (11:40)
[2019-03-12] MEDS: atorvaSTATin 40 MG Tab PO SCH (17:21)
[2019-03-12] MEDS: Melatonin 3 MG Tab PO SCH (19:41)
[2019-03-12] MEDS: Temazepam 15 MG Cap PO PRN (23:16)
[2019-03-13] MEDS: traMADol 50 MG Tab PO SCH ×3 (06:02→17:16)
[2019-03-13] MEDS ORDERED: Lisinopril 10 MG Tab PO ONE (07:32)
[2019-03-13] MEDS: Lidocaine 4% 1 each Patch TOP SCH (07:41)
[2019-03-13] MEDS: Metoprolol Tartrate 25 MG Tab PO SCH ×2 (07:42→19:47)
[2019-03-13] MEDS: Tiotropium Inhaler 18 MCG Inhalation Powder Cap Kit of 5 INH SCH (07:42)
[2019-03-13] MEDS: Isosorbide Mononitrate 30 MG Tab.ER PO SCH (07:42)
[2019-03-13] MEDS: Polyethylene Glycol 3350 Powder 17 GM Packet PO SCH (07:42)
[2019-03-13] MEDS: Pantoprazole 40 MG Tab.CR PO SCH (07:43)
[2019-03-13] MEDS: Acetaminophen 500 MG Tab PO SCH ×3 (07:43→19:46)
[2019-03-13] MEDS: hydrOXYzine Pamoate 25 MG Cap PO SCH ×3 (07:44→19:46)
[2019-03-13] MEDS: Aspirin 81 MG Tab.EC PO SCH (07:44)
[2019-03-13] MEDS: Levothyroxine 88 MCG Tab PO SCH (07:44)
[2019-03-13] MEDS: Baclofen 10 MG Tab PO SCH (11:41)
--- NOTE | 2019-03-13 12:25 | PCM.SN ---
- Free Text/Narrative Note: patient has been having issues with his blood pressure being elevated and his pulse being low. This morning patient had his metoprolol held due to an apical pulse of 54. He was given Imdur at his regular scheduled dosage and lisinopril 10 mg daily. His blood pressure improved to 128/70. We will continue to give him lisinopril 10 mg daily and we'll decrease his metoprolol to 25 mg twice a day to ensure rate control. We'll continue to monitor his blood pressure.
[2019-03-13] MEDS: atorvaSTATin 40 MG Tab PO SCH (17:15)
[2019-03-13] MEDS: Melatonin 3 MG Tab PO SCH (19:47)
[2019-03-14] MEDS: traMADol 50 MG Tab PO SCH ×2 (03:56→06:12)
[2019-03-14] MEDS: Polyethylene Glycol 3350 Powder 17 GM Packet PO SCH (08:04)
[2019-03-14] MEDS: Lidocaine 4% 1 each Patch TOP SCH (08:04)
[2019-03-14] MEDS: Tiotropium Inhaler 18 MCG Inhalation Powder Cap Kit of 5 INH SCH (08:05)
[2019-03-14] MEDS: Acetaminophen 500 MG Tab PO SCH ×3 (08:06→20:09)
[2019-03-14] MEDS: Pantoprazole 40 MG Tab.CR PO SCH (08:07)
[2019-03-14] MEDS: Lisinopril 10 MG Tab PO SCH (08:07)
[2019-03-14] MEDS: Metoprolol Tartrate 25 MG Tab PO SCH ×2 (08:07→20:09)
[2019-03-14] MEDS: hydrOXYzine Pamoate 25 MG Cap PO SCH (08:07)
[2019-03-14] MEDS: Isosorbide Mononitrate 30 MG Tab.ER PO SCH (08:08)
[2019-03-14] MEDS: Aspirin 81 MG Tab.EC PO SCH (08:08)
[2019-03-14] MEDS: Levothyroxine 88 MCG Tab PO SCH (08:09)
[2019-03-14] MEDS ORDERED: hydrOXYzine Pamoate 25 MG Cap PO PRN (11:32)
[2019-03-14] MEDS ORDERED: Polyethylene Glycol 3350 Powder 17 GM Packet PO PRN (11:42)
[2019-03-14] MEDS: traMADol 50 MG Tab PO PRN ×2 (11:50→20:10)
[2019-03-14] MEDS: Baclofen 10 MG Tab PO SCH (11:51)
[2019-03-14] MEDS: atorvaSTATin 40 MG Tab PO SCH (18:09)
[2019-03-14] MEDS: Melatonin 3 MG Tab PO SCH (20:09)
[2019-03-15] MEDS: Isosorbide Mononitrate 30 MG Tab.ER PO SCH (07:50)
[2019-03-15] MEDS: Aspirin 81 MG Tab.EC PO SCH (07:50)
[2019-03-15] MEDS: Pantoprazole 40 MG Tab.CR PO SCH (07:51)
[2019-03-15] MEDS: Acetaminophen 500 MG Tab PO SCH (07:52)
[2019-03-15] MEDS: Lisinopril 10 MG Tab PO SCH (07:54)
[2019-03-15] MEDS: Levothyroxine 88 MCG Tab PO SCH (07:55)
[2019-03-15] MEDS: Tiotropium Inhaler 18 MCG Inhalation Powder Cap Kit of 5 INH SCH (07:56)
[2019-03-15] MEDS: Metoprolol Tartrate 25 MG Tab PO SCH (07:58)
[2019-03-15 07:59] VITALS: BP 150/97; PULSE 62
[2019-03-15] MEDS: traMADol 50 MG Tab PO PRN (08:06)
--- NOTE | 2019-03-15 09:58 | PCM.DCSUM1 ---
Discharge Summary - Hospital Course Free Text/Narrative:: Patient was admitted for a short [facility] stay for rehabilitation after back surgery. He worked well with PT/OT and is more independent with his own personal cares. He did struggle with pain management at the beginning of his stay, but this has greatly improved. He is only taking Tramadol TID PRN now. Yesterday, he only used the medication twice. He was able to request this. The pain didn't interfere with his ADLs. He is planning to discharge home without services. His will be there to help support him. He has assistive devices in place in order to help him be successful at home. Patient is ready for discharge. - Discharge Data Discharge Date: 03/15/19 Discharge Disposition: Home, Self-Care 01 Condition: Good - Referral to Home Health Primary Care Physician: Cecile Chambers MD - Discharge Diagnosis/Problem(s) (1) Status post lumbar spine operative procedure for decompression of spinal cord SNOMED Code(s): 254168819, [id number] ICD Code: Z98.890 - OTHER SPECIFIED POSTPROCEDURAL STATES Status: Acute Current Visit: Yes Problem Details: Pain is controlled and he is independent with his ADLs. He continues to have autumn to his back, which will be removed prior to discharge. (2) Hypertension SNOMED Code(s): 74594202 ICD Code: I10 - ESSENTIAL (PRIMARY) HYPERTENSION Status: Acute Current Visit: Yes Problem Details: BP was elevated while in hospital. We adjusted his medications, which seem to be helping with stabilization of pressure. Qualifiers: Hypertension type: essential hypertension Qualified Code(s): I10 - Essential (primary) hypertension (3) Neuropathic pain SNOMED Code(s): 408450560 ICD Code: M79.2 - NEURALGIA AND NEURITIS, UNSPECIFIED Status: Acute Current Visit: Yes Problem Details: Tramadol will be used intiially for pain control from recent back surgery. Will monitor for ongoing neuropathic pain as this was a previous diagnosis for patient. He was previously on Gabapentin per his report - Patient Summary/Data Consults: Consultations 03/07/19 15:58 OT Evaluation and Treatment [CONS] Routine PT Evaluation and Treatment [CONS] Routine - Patient Instructions Diet: Heart Healthy Diet, Usual Diet as Tolerated Activity: As Tolerated Showering/Bathing: May Shower Wound/Incision Care: Keep Operative Site/Wound Site Clean and Dry Notify Provider of: Fever, Increased Pain, Swelling and Redness, Drainage, Nausea and/or Vomiting - Discharge Plan *PRESCRIPTION DRUG MONITORING PROGRAM REVIEWED*: Yes *COPY OF PRESCRIPTION DRUG MONITORING REPORT IN PATIENT DANILO: Yes Prescriptions/Med Rec: Metoprolol Tartrate [Lopressor] 25 mg PO Q12HR 30 Days #60 tablet Lisinopril [Prinivil] 10 mg PO DAILY 30 Days #30 tablet traMADol [Ultram] 50 mg PO Q8H PRN 30 Days #90 tablet PRN Reason: Pain (Moderate 4-6) Home Medications: Home Meds Aspirin [Halfprin] 81 mg PO DAILY 06/19/15 [History] Nitroglycerin [Nitrostat] 0.4 mg SL ASDIRECTED PRN 08/12/17 [History] Acetaminophen 1,000 mg PO TID 03/07/19 [History] Baclofen 10 mg PO DAILY@1200 03/07/19 [History] Isosorbide Mononitrate [Imdur] 30 mg PO DAILY 03/07/19 [History] Levothyroxine [Synthroid] 88 mcg PO DAILY 03/07/19 [History] Melatonin 6 mg PO BEDTIME 03/07/19 [History] Pantoprazole [ProTONIX] 40 mg PO DAILY 03/07/19 [History] Sennosides/Docusate Sodium [Senna Plus Tablet] 1 each PO BID 03/07/19 [History] Tiotropium [Spiriva HandiHaler] 18 mcg INH DAILY 03/07/19 [History] atorvaSTATin [Lipitor] 80 mg PO DAILY@1800 03/07/19 [History] hydrOXYzine pamoate [Vistaril] 50 mg PO TID 03/07/19 [History] Lisinopril [Prinivil] 10 mg PO DAILY 30 Days #30 tablet 03/15/19 [Rx] Metoprolol Tartrate [Lopressor] 25 mg PO Q12HR 30 Days #60 tablet 03/15/19 [Rx] traMADol [Ultram] 50 mg PO Q8H PRN 30 Days #90 tablet 03/15/19 [Rx] Oxygen Therapy Mode: Room Air - Discharge Summary/Plan Comment DC Time >30 min.: Yes - General Info Functional Status: Reports: Pain Controlled - Review of Systems General: Reports: No Symptoms HEENT: Reports: No Symptoms Pulmonary: Reports: No Symptoms Cardiovascular: Reports: No Symptoms Gastrointestinal: Reports: No Symptoms Genitourinary: Reports: No Symptoms Musculoskeletal: Reports: Back Pain, Leg Pain Skin: Reports: No Symptoms Neurological: Reports: No Symptoms Psychiatric: Reports: No Symptoms - Patient Data Vitals - Most Recent: Last Vital Signs Temp 97.9 F 03/15/19 08:00 Pulse 62 03/15/19 08:00 Resp 17 03/15/19 08:00 BP 150/97 H 03/15/19 08:00 Pulse Ox 96 03/15/19 08:00 Weight - Most Recent: 180 lb 11.2 oz I&O - Last 24 hours: Intake & Output 03/14/19 03/15/19 03/15/19 22:59 06:59 14:59 Intake Total 360 100 Balance 360 100 Med Orders - Current: Current Medications Acetaminophen (Tylenol Extra Strength) 1,000 mg PO 0800,1400,2000 [facility] Last Admin: 03/15/19 07:52 Dose: 1,000 mg Aspirin (Halfprin) 81 mg PO DAILY [facility] Last Admin: 03/15/19 07:50 Dose: 81 mg Atorvastatin Calcium (Lipitor) 80 mg PO DAILY@1800 [facility] Last Admin: 03/14/19 18:09 Dose: 80 mg Baclofen (Lioresal) 10 mg PO DAILY@1200 [facility] Last Admin: 03/14/19 11:51 Dose: 10 mg Hydroxyzine Pamoate (Vistaril) 50 mg PO TID PRN PRN Reason: Use with Ultram Last Admin: 03/15/19 08:05 Dose: 50 mg Isosorbide Mononitrate (Imdur) 30 mg PO DAILY [facility] Last Admin: 03/15/19 07:50 Dose: 30 mg Levothyroxine Sodium (Synthroid) 88 mcg PO DAILY [facility] Last Admin: 03/15/19 07:55 Dose: 88 mcg Lisinopril (Prinivil) 10 mg PO DAILY [facility] Last Admin: 03/15/19 07:54 Dose: 10 mg Melatonin (Melatonin) 6 mg PO BEDTIME [facility] Last Admin: 03/14/19 20:09 Dose: 6 mg Metoprolol Tartrate (Lopressor) 25 mg PO Q12HR [facility] Last Admin: 03/15/19 07:58 Dose: 25 mg Nitroglycerin (Nitrostat) 0.4 mg SL ASDIRECTED PRN PRN Reason: Chest Pain Pantoprazole Sodium (Protonix) 40 mg PO DAILY [facility] Last Admin: 03/15/19 07:51 Dose: 40 mg Polyethylene Glycol (Miralax) 17 gm PO DAILY PRN PRN Reason: Constipation Senna/Docusate Sodium (Senna Plus) 1 tab PO BID PRN PRN Reason: Constipation Temazepam (Restoril) 15 mg PO BEDTIME PRN PRN Reason: Insomnia Last Admin: 03/12/19 23:16 Dose: 15 mg Tiotropium [place] (Spiriva Handihaler) 18 mcg INH DAILY [facility] Last Admin: 03/15/19 07:56 Dose: 18 mcg Tramadol HCl (Ultram) 50 mg PO Q6H PRN PRN Reason: Pain (moderate 4-6) Last Admin: 03/15/19 08:06 Dose: 50 mg Discontinued Medications Acetaminophen (Tylenol Extra Strength) 1,000 mg PO TID [facility] Last Admin: 03/09/19 19:56 Dose: Not Given Hydroxyzine Pamoate (Vistaril) 50 mg PO TID [facility] Last Admin: 03/09/19 19:56 Dose: Not Given Hydroxyzine Pamoate (Vistaril) 50 mg PO 0800,1400,1999 [facility] Last Admin: 03/14/19 08:07 Dose: 50 mg Lidocaine (Aspercreme 4%) 2 each TOP DAILY [facility] Last Admin: 03/14/19 08:04 Dose: Not Given Lisinopril (Prinivil) 10 mg PO ONETIME ONE Stop: 03/13/19 07:33 Last Admin: 03/13/19 07:49 Dose: 10 mg Metoprolol Tartrate (Lopressor) 75 mg PO Q12H [facility] Last Admin: 03/13/19 07:42 Dose: Not Given Miscellaneous Information (Remove Patch) 2 ea TRDERM 1999 [facility] Last Admin: 03/13/19 19:48 Dose: Not Given Polyethylene Glycol (Miralax) 17 gm PO DAILY [facility] Last Admin: 03/14/19 08:04 Dose: Not Given Senna/Docusate Sodium (Senna Plus) 1 tab PO BID [facility] Last Admin: 03/14/19 08:05 Dose: Not Given Tramadol HCl (Ultram) 50 mg PO Q6H [facility] Last Admin: 03/14/19 06:12 Dose: Not Given - Exam General: Reports: Alert, Oriented, Cooperative HEENT: Reports: Pupils Equal, Pupils Reactive, Mucous Membr. Moist/[place] Neck: Reports: Supple Lungs: Reports: Clear to Auscultation, Normal Respiratory Effort Cardiovascular: Reports: Regular Rate, Regular Rhythm, No Murmurs GI/Abdominal Exam: Normal Bowel Sounds, Non-Tender (Male) Exam: Deferred Rectal (Males) Exam: Deferred Back Exam: Reports: Normal Inspection, Full Range of Motion, Other (dressing) Extremities: Normal Inspection, Normal Range of Motion, No Pedal Edema Skin: Reports: Warm, Dry, Intact Neurological: Reports: No New Focal Deficit Psy/Mental Status: Reports: Alert, Normal Affect, Normal Mood
== END 2019-03-15 10:54 | disposition home or self-care (01) | DRG 561 ==
LOC: LL.MS 14:56
PROVIDERS: ADMIT Nurse Practitioner; ATTEND Nurse Practitioner
DX: Z47.89 Encounter for other orthopedic aftercare (principal); M43.26 Fusion of spine, lumbar region; M79.2 Neuralgia and neuritis, unspecified; E03.9 Hypothyroidism, unspecified; I25.10 Atherosclerotic heart disease of native coronary artery without angina pectoris; E78.00 Pure hypercholesterolemia, unspecified; I10 Essential (primary) hypertension; K21.9 Gastro-esophageal reflux disease without esophagitis; K59.09 Other constipation; N40.0 Benign prostatic hyperplasia without lower urinary tract symptoms; M19.90 Unspecified osteoarthritis, unspecified site; F41.9 Anxiety disorder, unspecified; F32.9 Major depressive disorder, single episode, unspecified; E78.5 Hyperlipidemia, unspecified; Z88.5 Allergy status to narcotic agent; Z79.82 Long term (current) use of aspirin; Z79.890 Hormone replacement therapy; Z79.899 Other long term (current) drug therapy; Z98.49 Cataract extraction status, unspecified eye; Z95.5 Presence of coronary angioplasty implant and graft
CPT/HCPCS: 36415; 83735; 85379; 93971; 94640; 97110-GO; 97110-GP; 97161-GP; 97165-GO; 97530-GO; 97530-GP; 97535-GO; A9270-GY; Q0177

== ENCOUNTER 2021-09-19 23:14 | Emergency (ER) | payer MEDICARE, BC ==
[2021-09-20 00:13] LABS: ANION GAP 13.2 meq/L (7-15)
[2021-09-20] MEDS ORDERED: Sodium Chloride 0.9% 1,000 ML IV ONE (00:33)
[2021-09-20] MEDS ORDERED: LORazepam 2 MG/ML SDV IVPUSH ONE (00:34)
[2021-09-20 03:05] VITALS: BP 106/87; PULSE 61
== END 2021-09-20 01:40 ==
LOC: LL.ED 23:14
DX: S12.031A Nondisplaced posterior arch fracture of first cervical vertebra, initial encounter for closed fracture (principal); S06.360A Traumatic hemorrhage of cerebrum, unspecified, without loss of consciousness, initial encounter; T50.905A Adverse effect of unspecified drugs, medicaments and biological substances, initial encounter; E78.00 Pure hypercholesterolemia, unspecified; I25.10 Atherosclerotic heart disease of native coronary artery without angina pectoris; I10 Essential (primary) hypertension; J44.9 Chronic obstructive pulmonary disease, unspecified; K21.9 Gastro-esophageal reflux disease without esophagitis; E03.9 Hypothyroidism, unspecified; Z87.891 Personal history of nicotine dependence; Z88.5 Allergy status to narcotic agent; Z79.899 Other long term (current) drug therapy; Z79.82 Long term (current) use of aspirin; W01.0XXA Fall on same level from slipping, tripping and stumbling without subsequent striking against object, initial encounter
CPT/HCPCS: 36415; 70450; 72125; 80053; 83605; 83735; 83880; 84443; 85025; 96374; 99285; J2060; J7030

== ENCOUNTER 2024-03-30 08:45 | Emergency (ER) | payer MEDICARE ==
[2024-03-30] MEDS: 50% Dextrose in Water 50 ML Syringe IVPUSH ONE (08:53)
[2024-03-30] MEDS: Sodium Chloride 0.9% 10 ML Syringe FLUSH PRN (08:55)
[2024-03-30 09:04] VITALS: BP 138/76; PULSE 69
[2024-03-30 09:24] LABS: BASOPHILS ABSOLUTE AUTO 0.04 K/uL (0.00-0.20); BASOPHILS PERCENT AUTO 0.4 % (0.0-2.0); EOSINOPHILS PERCENT AUTO 2.1 % (0.0-5.0); HEMATOCRIT 40.8 % (39.0-49.0); HEMOGLOBIN 13.2 g/dL (13.1-16.8); IMMATURE GRAN ABSOLUTE AUTO 0.03 10^3/uL (0.00-0.50); IMMATURE GRAN PERCENT AUTO 0.3 % (0.0-5.0); LYMPHOCYTES ABSOLUTE AUTO 1.01 K/uL (0.50-3.50); LYMPHOCYTES PERCENT AUTO 10.5 % (10.0-50.0); MEAN CORPUSCULAR HEMOGLOBIN 30.3 pg (28.2-33.3); MEAN CORPUSCULAR HGB CONC 32.4 g/dL (31.7-36.0); MEAN CORPUSCULAR VOLUME 93.6 fL (84.0-98.0); MONOCYTES ABSOLUTE AUTO 0.62 K/uL (0.00-1.00); MONOCYTES PERCENT AUTO 6.5 % (2.0-14.0); NEUTROPHILS ABSOLUTE AUTO 7.71 K/uL (1.40-7.00); NEUTROPHILS PERCENT AUTO 80.2 % (45.0-80.0); PLATELET COUNT,PLT 196 K/uL (150-350); RED BLOOD CELL COUNT 4.36 M/uL (4.33-5.41); WHITE BLOOD CELL COUNT,WBC 9.6 K/uL (4.0-10.2)
[2024-03-30 09:38] LABS: INR 1.1 (0.9-1.1); PROTHROMBIN TIME 10.7 SEC (9.0-11.1)
[2024-03-30 09:51] LABS: ALBUMIN 3.7 g/dL (3.4-5.0); ANION GAP 8.9 meq/L (7-15); BILIRUBIN TOTAL 0.6 mg/dL (0.2-1.0); CALCIUM 9.1 mg/dL (8.5-10.1); CARBON DIOXIDE,CO2 29.1 mmol/L (21.0-32.0); EST CRCL DRUG DOSING (CG) 53.81 mL/min; POTASSIUM,K 3.8 mmol/L (3.5-5.1); PROTEIN TOTAL,TP 7.1 g/dL (6.4-8.2)
== END 2024-03-30 12:15 | disposition home or self-care (01) ==
LOC: LL.ED 08:45
DX: T38.3X1A Poisoning by insulin and oral hypoglycemic [antidiabetic] drugs, accidental (unintentional), initial encounter (principal); I10 Essential (primary) hypertension; I25.10 Atherosclerotic heart disease of native coronary artery without angina pectoris; E78.00 Pure hypercholesterolemia, unspecified; Z88.8 Allergy status to other drugs, medicaments and biological substances; Z79.82 Long term (current) use of aspirin; Z79.899 Other long term (current) drug therapy
CPT/HCPCS: 36415; 80053; 82947; 83735; 85025; 85610; 87428-QW; 93005; 96374; 99284-25; J3490

== ENCOUNTER 2024-08-01 12:48 | Emergency (ER) | payer OTHER, MEDICARE ==
[2024-08-01] MEDS ORDERED: Sodium Chloride 0.9% 10 ML Syringe FLUSH PRN (12:52)
[2024-08-01 13:05] LABS: BASOPHILS ABSOLUTE AUTO 0.03 K/uL (0.00-0.20); BASOPHILS PERCENT AUTO 0.4 % (0.0-2.0); EOSINOPHILS ABSOLUTE AUTO 0.24 K/uL (0.00-0.50); EOSINOPHILS PERCENT AUTO 3.3 % (0.0-5.0); HEMATOCRIT 43.2 % (39.0-49.0); HEMOGLOBIN 14.2 g/dL (13.1-16.8); IMMATURE GRAN ABSOLUTE AUTO 0.01 10^3/uL (0.00-0.04); IMMATURE GRAN PERCENT AUTO 0.1 % (0.0-0.4); LYMPHOCYTES ABSOLUTE AUTO 1.41 K/uL (0.50-3.50); LYMPHOCYTES PERCENT AUTO 19.5 % (10.0-50.0); MEAN CORPUSCULAR HEMOGLOBIN 30.3 pg (28.2-33.3); MEAN CORPUSCULAR HGB CONC 32.9 g/dL (31.7-36.0); MEAN CORPUSCULAR VOLUME 92.3 fL (84.0-98.0); MONOCYTES ABSOLUTE AUTO 0.56 K/uL (0.00-1.00); MONOCYTES PERCENT AUTO 7.7 % (2.0-14.0); NEUTROPHILS ABSOLUTE AUTO 4.98 K/uL (1.40-7.00); PLATELET COUNT,PLT 202 K/uL (150-350); RED BLOOD CELL COUNT 4.68 M/uL (4.33-5.41); RED CELL DISTRIBUTION WIDTH 12.8 % (11.2-14.1); WHITE BLOOD CELL COUNT,WBC 7.2 K/uL (4.0-10.2)
[2024-08-01 13:26] LABS: ALBUMIN 3.7 g/dL (3.4-5.0); ANION GAP 6.7 meq/L (7-15); BILIRUBIN TOTAL 0.6 mg/dL (0.2-1.0); CALCIUM 9.2 mg/dL (8.5-10.1); CARBON DIOXIDE,CO2 28.3 mmol/L (21.0-32.0); CREATININE 0.92 mg/dL (0.51-1.17); EST CRCL DRUG DOSING (CG) 57.56 mL/min; PROTEIN TOTAL,TP 7.2 g/dL (6.4-8.2)
[2024-08-01 13:31] LABS: LACTIC ACID 1.5 mmol/L (0.4-2.0)
[2024-08-01 13:57] LABS: APPEARANCE,URINE CLEAR; BILIRUBIN,URINE NEGATIVE (NEGATIVE); COLOR,URINE YELLOW; GLUCOSE,URINE 500 mg/dL (NEGATIVE); KETONES,URINE NEGATIVE (NEGATIVE); LEUKOCYTE ESTERASE,URINE NEGATIVE (NEGATIVE); NITRITE,URINE NEGATIVE (NEGATIVE); OCCULT BLOOD,URINE NEGATIVE (NEGATIVE); PH,URINE 5.5 (5.0-9.0); PROTEIN,URINE NEGATIVE (NEGATIVE); UROBILINOGEN,URINE 0.2 E.U./dL (0.2-1.0)
[2024-08-01 15:59] VITALS: BP 139/75; PULSE 60
== END 2024-08-01 15:46 | disposition home or self-care (01) ==
LOC: LL.ED 12:48
DX: E16.2 Hypoglycemia, unspecified (principal); I25.10 Atherosclerotic heart disease of native coronary artery without angina pectoris; E78.00 Pure hypercholesterolemia, unspecified; I10 Essential (primary) hypertension; Z95.5 Presence of coronary angioplasty implant and graft; J44.9 Chronic obstructive pulmonary disease, unspecified; Z88.5 Allergy status to narcotic agent; Z79.82 Long term (current) use of aspirin; Z79.899 Other long term (current) drug therapy
CPT/HCPCS: 36415; 80053; 81003; 82947; 83605; 83735; 85025; 99285